=== PATIENT | male | born 1965 | race Caucasian/White ===

== ENCOUNTER 2019-08-28 11:52 | Inpatient (IN) | payer BC ==
[~2019-08-28] VITALS: Ht 180.3 cm; Wt 72.2 kg
[2019-08-28] MEDS ORDERED: ATOR10TA60 PO (12:23)
[2019-08-28] MEDS ORDERED: LISI1TAB19 PO (12:24)
[2019-08-28] MEDS ORDERED: AMOX1TAB61 PO (12:24)
[2019-08-28] MEDS ORDERED: fentaNYL PF VIAL 100 MCG/2 ML VIAL IVP ONE (12:30)
[2019-08-28] MEDS ORDERED: IV NORMAL SALINE 1000ML BAG 1,000 ML IV ONE ×2 (12:30→16:45)
--- NOTE | 2019-08-28 12:40 | PHYS DOC ---
Past Medical History Past Medical History: Diverticulitis, Diverticulosis, High Cholesterol, H ypertension, Migraines (LIZETT KIM APRN) Past Surgical History: Other Additional Past Surgical Histo: L SHOULDER, L HAND (LIZETT KIM APRN) Smoking Status: Current Every Day Smoker Alcohol Use: Occasionally (LIZETT KIM APRN) General Adult EDM: Chief Complaint: ABDOMINAL PAIN HPI: HPI: Patient is a 53 year old male who presents with complaints of left upper and lower quadrant pain that started on 19 August evening slow onset, has increasingly become worse to the 8/10 pain scale. Patient states he has a long history of diverticulitis and usually self treats at home. Patient states he called his primary physician Dr. Chung who called in a prescription for Augmentin 875/125 that he started this past Thursday taking the medication as directed twice a day. Patient states that usually the antibiotic helps his pain go away but is not the case today. Patient states he thinks he is constipated and has not had a normal bowel movement since 19 August. Patient states he had a small watery stool yesterday morning that was brown in color without blood or dark maroon color. Patient states he usually has a BM every day. Patient states that he smokes 1 pack of cigarettes a day for the past 20 years. Patient denies nausea vomiting. Patient denies fever or chills, any recent vision changes, nasal congestion or sore throat. Patient denies any cough or shortness of breath. Patient denies any chest pain or peripheral swelling or edema. Patient denies any problems urinating. Patient denies any back or pain in his joints. Patient denies any rashes. Patient denies any headache or focal weaknesses or sensory changes. Patient denies any swelling of his glands. Patient denies any recent depressions or anxieties or homicidal or suicidal ideations. Patient states no one else in his home has the same symptoms. Patient associates his current symptoms with diverticulitis. (LIZETT KIM APRN) Review of Systems: Review of Systems: Constitutional: Denies fever or chills. Eyes: Denies change in visual acuity. HENT: Denies nasal congestion or sore throat. Respiratory: Denies cough or shortness of breath. Cardiovascular: Denies chest pain or edema. GI: Complains of left upper and lower quadrant pain, denies right upper and lower quadrant pain, nausea, vomiting, complains of small diarrhea stool this morning, complains of constipation since August 192019.. : Denies dysuria. Musculoskeletal: Denies back pain or joint pain. Integument: Denies rash. Neurologic: Denies headache, focal weakness or sensory changes. Lymphatic: Denies swollen glands. Psychiatric: Denies depression or anxiety, denies HI/SI. (LIZETT KIM APRN) Heart Score: Risk Factors: Risk Factors: DM, Current or recent (<one month) smoker, HTN, HLP, family history of CAD, obesity. Risk Scores: Score 0 - 3: 2.5% MACE over next 6 weeks - Discharge Home Score 4 - 6: 20.3% MACE over next 6 weeks - Admit for Clinical Observation Score 7 - 10: 72.7% MACE over next 6 weeks - Early Invasive Strategies (LIZETT KIM APRN) Family History: Family History: Patient denies any family history related to this visit. (LIZETT KIM APRN) Current Medications: Patient states he currently takes atorvastatin 10 mg for high cholesterol, lisinopril 20 mg daily for blood pressure, 12.5 mg hydrochlorothiazide daily for high blood pressure, and a current regimen of Augmentin 875/125 starting this past Thursday for diverticulitis. (LIZETT KIM APRN) Allergies: Allergies: Patient denies allergies to medications. Allergies Coded Allergies Type Severity Reaction Last Updated Verified No Known Drug Allergies 08/28/19 No (LIZETT KIM APRN) Physical Exam: PE: Constitutional: Well developed, well nourished, no acute distress, non-toxic appearance. Patient warm to touch, current oral temp 102.5. Nondiaphoretic. HENT: Normocephalic, atraumatic, bilateral external ears normal, oropharynx moist, no oral exudates, nose normal. Eyes: PERRLA, EOMI, conjunctiva normal, no discharge. Pupils 5 mm. Neck: Normal range of motion, no tenderness, supple, no stridor. Cardiovascular:Heart rate regular rhythm, no murmur heart sounds S1-S2, no abnormalities noted per auscultation. Lungs & Thorax: Bilateral breath sounds clear to auscultation all lung romo. Abdomen: Bowel sounds hypoactive all 4 quadrants. Soft, tender to left upper and lower quadrant per palpation, no tenderness to right upper and lower quadrant. no tenderness, no masses, no pulsatile masses. Skin: Warm, dry, no erythema, no rash. Back: No tenderness, no CVA tenderness. Extremities: No tenderness, no cyanosis, no clubbing, ROM intact, no edema. Neurologic: Alert and oriented X 3, normal motor function, normal sensory function, no focal deficits noted. Psychologic: Affect normal, judgement normal, mood normal. (LIZETT KIM APRN) Current Patient Data: Vital Signs: Vital Signs Date Time Temp Pulse Resp B/P (MAP) Pulse Ox O2 Delivery O2 Flow Rate FiO2 08/28/19 12:10 102.6 129 18 156/75 (102) 95 Room Air 102.6 (LIZETT KIM APRN) EKG: EKG: EKG performed at 1229 today shows sinus tachycardia without ectopy no STEMI noted reviewed by Dr. Ray. (LIZETT KIM APRN) Radiology/Procedures: Radiology/Procedures: PROCEDURE: CT ABD PELV W/ IV CONTRST ONLY EXAM: CT Abdomen and Pelvis with IV contrast INDICATION: Reason: LEFT UPPER AND LOWER QUAD ABD PAIN / Spl. Instructions: IV OMNI 300 75 MLS / History: TECHNIQUE: Multi-detector row CT images were acquired from the lung bases through the abdomen and pelvis with the use of IV contrast. Sagittal and coronal images were acquired from the transaxial data. All CT scans performed at this facility utilize dose optimization techniques as appropriate to the exam, including the following: Automated exposure control and adjustment of the mA and/or KV according to patient size (this includes techniques or standardized protocols for targeted exams where dose is indication/reason for exam). IV CONTRAST: Administered ORAL CONTRAST: Not administered COMPARISON: None FINDINGS: LOWER CHEST: Unremarkable LIVER: Unremarkable BILIARY SYSTEM: Gallbladder is unremarkable. Bile ducts are not dilated. PANCREAS: There is mild misting in the peripancreatic soft tissues near the tail SPLEEN: Unremarkable ADRENALS: Bilateral diffuse fullness to the adrenal glands, suggesting hyperplasia. KIDNEYS & URETERS: Mild diffuse urinary bladder wall thickening. BLADDER: Unremarkable REPRODUCTIVE ORGANS: Prostate measures 4.9 cm across. GASTROINTESTINAL: There is colonic diverticulosis. There is mild pericolonic soft tissue stranding surrounding a diverticulum in the sigmoid colon, best illustrated on coronal images 34 through 36 on series 4. No findings of bowel obstruction or perforation. The appendix is normal. MESENTERY/PERITONEUM/RETROPERITONEUM: Unremarkable VASCULAR: Scattered arterial calcifications. No aneurysm. LYMPH NODES: No adenopathy OSSEOUS & SOFT TISSUES: Unremarkable IMPRESSION: 1. There is evidence of acute sigmoid diverticulitis. No bowel perforation or abscess formation. 2. There is wall thickening in the urinary bladder that is nonspecific but could reflect acute cystitis in the appropriate clinical context. 3. Soft tissue stranding tracking of the mesenteric vessels into the left upper quadrant is seen, possibly reflecting phlebitis related to acute sigmoid colonic inflammation. Correlate clinically for any evidence of pancreatitis. Electronically signed by: Eran Ramon MD (08/28/2019 1:57 PM) (LIZETT KIM APRN) Course & Med Decision Making: Course & Med Decision Making Pertinent Labs and Imaging studies reviewed. (See chart for details) 53-year-old male patient presents emergency department today complaining of left upper and lower quadrant pain since 19 August, described as a slow onset that has increased to 8 out of 10 pain scale as of today. Patient states he called his primary physician Dr. Chung who started him on Augmentin this past Thursday which she has been taken twice a day since Thursday. Patient states he has a long history of diverticulitis and is usually able to take care of it at home with antibiotics called in by his physician. Patient states that he fears his diverticulitis has become worse and antibiotics are not taken care of at this time. Patient states he is concerned about constipation as he has not had a normal BM since the beginning of the presentation on August 19, stating his last BM was yesterday a small watery stool that was brown without blood. Patient states he usually goes every day with normal stool consistency. Patient states he smokes 1 pack of cigarettes per day for the past 20 years. Patient was counseled to stop smoking. Patient states he is a daily drinker. Patient states he does not do illicit drugs. Patient states his health history is hypertension occasional migraines and chronic diverticulitis. Vital signs reviewed patient noted to have a fever oral temp 102.5. Tylenol was given p.o. Labs were drawn and imaging was read by [facility] radiologist, these were reviewed with patient's primary physician Dr. Chung who agreed to assume care and admit patient to the [facility] unit for acute diverticulitis. Spoke with patient about admission who was agreeable to this. (LIZETT KIM APRN) Dragon Disclaimer: Dragon Disclaimer: This electronic medical record was generated, in whole or in part, using a voice recognition dictation system. (LIZETT KIM APRN) Departure Departure Impression: Primary Impression: Acute diverticulitis Additional Impression: Fever Qualified Codes: R50.81 - Fever presenting with conditions classified elsewhere Disposition: ADMITTED INPATIENT Admitting Physician: Brian Chung (LIZETT KIM APRN) Condition: GUARDED Referrals: BRIAN CHUNG MD (PCP) Justicifation of Admission Dx: Justifications for Admission: Justification of Admission Dx: Yes Comments: ACUTE DIVERTICULITIS (LIZETT KMI APRN) Attending Signature Attending Signature I have reviewed the PA/BILLING COORDINATOR's note and plan of care. I was available for consultation as needed during the patient's visit in the emergency department. I agree with the clinical impression, plan, and disposition. (LIZETT RAY DO) LIZETT KIM APRN Aug 28, 2019 12:40 LIZETT RAY DO Aug 29, 2019 06:36
[2019-08-28 12:53] LABS: BASO % 0 % (0-3); EOS % 0 % (0-3); HEMATOCRIT 46.6 % (39.0-53.0); HEMOGLOBIN 16.7 g/dL (13.0-17.5); LYMPH # 0.8 x10^3/uL (1.0-4.8); LYMPH % 6 % (24-48); MEAN CORPUSCULAR HEMOGLOBIN 33 pg (25-35); MEAN CORPUSCULAR HGB CONC 36 g/dL (31-37); MEAN CORPUSCULAR VOLUME 92 fL (79-100); MONO # 0.7 x10^3/uL (0.0-1.1); MONO % 6 % (0-9); NEUT # 11.6 x10^3/uL (1.8-7.7); NEUT % 88 % (31-73); PLATELET COUNT 302 x10^3/uL (140-400); RED BLOOD COUNT 5.07 x10^6/uL (4.30-5.70); WHITE BLOOD COUNT 13.3 x10^3/uL (4.0-11.0)
[2019-08-28 13:04] LABS: CALCIUM 8.6 mg/dL (8.5-10.1); CREATININE 1.2 mg/dL (0.7-1.3); GFR 63.6; POTASSIUM 4.2 mmol/L (3.5-5.1)
[2019-08-28 13:08] LABS: ALBUMIN 3.4 g/dL (3.4-5.0); ALBUMIN/GLOBULIN RATIO 0.8 (1.0-1.7); TOTAL BILIRUBIN 0.9 mg/dL (0.2-1.0); TOTAL PROTEIN 7.6 g/dL (6.4-8.2)
[2019-08-28 13:09] LABS: PROTHROMBIN TIME PATIENT 13.1 SEC (11.7-14.0)
[2019-08-28 13:09] LABS: BILIRUBIN,URINE NEGATIVE (NEG); CLARITY,URINE CLEAR; COLOR,URINE AMBER; NITRITE,URINE NEGATIVE (NEG); PROTEIN,URINE NEGATIVE (NEG-TRACE); UROBILINOGEN,URINE 0.2 mg/dL (0.2 mg/dL)
[2019-08-28] MEDS ORDERED: IOHEXOL 300 MG/ML 100ML VIAL. IV ONE (13:15)
[2019-08-28 13:22] LABS: SQUAMOUS EPITHELIAL CELL,UR FEW /LPF
[2019-08-28 13:23] LABS: BACTERIA,URINE 0 /HPF (0-FEW); RBC,URINE OCC /HPF (0-2); WBC,URINE OCC /HPF (0-4)
[2019-08-28] MEDS ORDERED: CONTRAST GIVEN. MC PRN (13:30)
--- NOTE | 2019-08-28 13:59 | RAD ---
EXAM: CT Abdomen and Pelvis with IV contrast INDICATION: Reason: LEFT UPPER AND LOWER QUAD ABD PAIN / Spl. Instructions: IV OMNI 300 75 MLS / History: TECHNIQUE: Multi-detector row CT images were acquired from the lung bases through the abdomen and pelvis with the use of IV contrast. Sagittal and coronal images were acquired from the transaxial data. All CT scans performed at this facility utilize dose optimization techniques as appropriate to the exam, including the following: Automated exposure control and adjustment of the mA and/or KV according to patient size (this includes techniques or standardized protocols for targeted exams where dose is indication/reason for exam). IV CONTRAST: Administered ORAL CONTRAST: Not administered COMPARISON: None FINDINGS: LOWER CHEST: Unremarkable LIVER: Unremarkable BILIARY SYSTEM: Gallbladder is unremarkable. Bile ducts are not dilated. PANCREAS: There is mild misting in the peripancreatic soft tissues near the tail SPLEEN: Unremarkable ADRENALS: Bilateral diffuse fullness to the adrenal glands, suggesting hyperplasia. KIDNEYS & URETERS: Mild diffuse urinary bladder wall thickening. BLADDER: Unremarkable REPRODUCTIVE ORGANS: Prostate measures 4.9 cm across. GASTROINTESTINAL: There is colonic diverticulosis. There is mild pericolonic soft tissue stranding surrounding a diverticulum in the sigmoid colon, best illustrated on coronal images 34 through 36 on series 4. No findings of bowel obstruction or perforation. The appendix is normal. MESENTERY/PERITONEUM/RETROPERITONEUM: Unremarkable VASCULAR: Scattered arterial calcifications. No aneurysm. LYMPH NODES: No adenopathy OSSEOUS & SOFT TISSUES: Unremarkable IMPRESSION: 1. There is evidence of acute sigmoid diverticulitis. No bowel perforation or abscess formation. 2. There is wall thickening in the urinary bladder that is nonspecific but could reflect acute cystitis in the appropriate clinical context. 3. Soft tissue stranding tracking of the mesenteric vessels into the left upper quadrant is seen, possibly reflecting phlebitis related to acute sigmoid colonic inflammation. Correlate clinically for any evidence of pancreatitis. Electronically signed by: Eran Ramon MD (08/28/2019 1:57 PM) [id number]
[2019-08-28] MEDS ORDERED: ACETAMINOPHEN 500 MG TABLET PO ONE (14:30)
[2019-08-28 14:46] LABS: % LYMPHS 5 % (24-48); % MONOS 4 % (0-10); % SEGS 91 % (35-66)
[2019-08-28 14:47] LABS: PLT ESTIMATE ADEQUATE (ADEQUATE); TOXIC GRANULATION MOD
[2019-08-28] MEDS ORDERED: ONDANSETRON PF 4 MG/2 ML VIAL. IV PRN (16:45)
[2019-08-28] MEDS ORDERED: ACETAMINOPHEN 325 MG TABLET. PO PRN (16:45)
[2019-08-28] MEDS ORDERED: CIPROFLOXACIN 400MG PREMIX 200 ML IV ONE (17:00)
[2019-08-28 17:50] VITALS: BP 129/67
[2019-08-28] MEDS: HYDROcodone/APAP 7.5/325MG 1 TAB TABLET PO PRN (18:25)
[2019-08-28 19:00] VITALS: BP 114/63
--- NOTE | 2019-08-28 19:21 | NUR ---
Fentanyl reassessment not done by this RN.
[2019-08-28] MEDS: CIPROFLOXACIN 400MG PREMIX 200 ML IV SCH (21:26)
[2019-08-28] MEDS: KETOROLAC 30 MG/ML VIAL. IVP PRN (21:27)
[2019-08-28] MEDS ORDERED: NICOTINE 21MG PATCH. TD ONE (21:45)
[2019-08-28 23:00] VITALS: BP 92/52
[2019-08-29 03:00] VITALS: BP 96/51
[2019-08-29 07:00] VITALS: BP 114/74
[2019-08-29] MEDS ORDERED: MELO15TA23 PO (07:22)
[2019-08-29] MEDS ORDERED: ATOR10TA60 PO (07:22)
[2019-08-29] MEDS ORDERED: TOPI50TA38 PO (07:22)
[2019-08-29] MEDS: CIPROFLOXACIN 400MG PREMIX 200 ML IV SCH ×2 (08:34→20:19)
[2019-08-29] MEDS: NICOTINE 21MG PATCH. TD SCH (08:35)
[2019-08-29] MEDS ORDERED: LORazepam 1 MG TABLET PO PRN (08:45)
--- NOTE | 2019-08-29 08:51 | PDOC ---
Provider Note Provider Note [id number] Justicifation of Admission Dx: Justifications for Admission: Justification of Admission Dx: Yes RANJIT CHUNG MD Aug 29, 2019 08:51
--- NOTE | 2019-08-29 09:14 | HP ---
ADMIT DATE: 08/28/2019 CHIEF COMPLAINT: Abdominal pain and fever. HISTORY OF PRESENT ILLNESS: A 53-year-old white male who was started on Augmentin 4 days ago for presumed diverticulitis with left lower quadrant pain, failed to improve and had increasing pain and fever. CT scan confirmed diverticulitis without evidence of perforation and he was started on IV Cipro and Flagyl. PAST HISTORY: He takes meds for blood pressure at home. He has never been hospitalized for diverticulitis so far. ALLERGIES: No allergies are known. 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 FAMILY HISTORY: Unremarkable. REVIEW OF SYSTEMS: No other complaints. OBJECTIVE: ENT: All within normal limits. NECK: No masses, nodes or bruits. LUNGS: Clear. CARDIOVASCULAR: Tachycardia with fever. Otherwise, no murmur. ABDOMEN: Relatively soft, benign. Mildly tender in the left upper quadrant. No guarding or masses. EXTREMITIES: Unremarkable. Good pedal pulses. NEUROLOGIC: Physiologic. ASSESSMENT: Acute sigmoid diverticulitis with failure of outpatient oral therapy. PLAN: Continue current meds pending clinical result. RANJIT CHUNG MD DR: JACKSON/felipe JOB#: [id number] / [id number]
[2019-08-29] MEDS: MULTIVITAMIN with MINERAL TABLET. PO SCH (09:36)
[2019-08-29] MEDS: HYDROcodone/APAP 7.5/325MG 1 TAB TABLET PO PRN ×2 (09:37→20:18)
--- NOTE | 2019-08-29 10:48 | NUR ---
SW following. Discussed with RN, pt from home with , room air. RN advised no SW needs at this time. SW will continue to follow should any discharge needs arise.
[2019-08-29 11:00] VITALS: BP 102/61
--- NOTE | 2019-08-29 14:23 | NUR ---
Patient had critical results of +Blood culture of gram - rods 1 of [address] Melgar continue POC and if patient temperature gets >100.4 we are to do another blood culture.
[2019-08-29 15:00] VITALS: BP 109/65
[2019-08-29 19:00] VITALS: BP 120/71
[2019-08-29] MEDS: LACTOBACILLUS RHAMNOSUS GG 1 CAPSULE. PO SCH (20:18)
[2019-08-29] MEDS: KETOROLAC 30 MG/ML VIAL. IVP PRN (21:40)
[2019-08-29 23:00] VITALS: BP 108/69
[2019-08-30 03:00] VITALS: BP 105/62
[2019-08-30 07:00] VITALS: BP 102/63
--- NOTE | 2019-08-30 07:55 | EKG ---
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
--- NOTE | 2019-08-30 08:08 | PDOC ---
Provider Note Provider Note vss, was 102 last pm- feels some less pain, less tender - apetite back , will resume diet- has + blood cult gram neg rods- will continue flagyl/cipro for now- TAs up but he denies heavy etoh, will do hep c ab but no reason to suspect same Justicifation of Admission Dx: Justifications for Admission: Justification of Admission Dx: Yes RANJIT CHUNG MD Aug 30, 2019 08:08
[2019-08-30] MEDS: NICOTINE 21MG PATCH. TD SCH (09:00)
[2019-08-30] MEDS: MULTIVITAMIN with MINERAL TABLET. PO SCH (09:25)
[2019-08-30] MEDS: LACTOBACILLUS RHAMNOSUS GG 1 CAPSULE. PO SCH ×2 (09:25→20:52)
[2019-08-30] MEDS: CIPROFLOXACIN 400MG PREMIX 200 ML IV SCH ×2 (09:27→20:52)
--- NOTE | 2019-08-30 09:56 | NUR ---
SW following. Discussed with RN, pt had fevers overnight, blood cultures pending. IV flagy and cipro. Pt advanced to regular diet. RN advised pt not ready to discharge. SW will continue to follow.
[2019-08-30 11:00] VITALS: BP 111/65
[2019-08-30 11:02] LABS: CALCIUM 8.2 mg/dL (8.5-10.1); CREATININE 0.9 mg/dL (0.7-1.3); GFR 88.6; POTASSIUM 3.6 mmol/L (3.5-5.1)
[2019-08-30 14:54] VITALS: BP 120/74
[2019-08-30] MEDS: HYDROcodone/APAP 7.5/325MG 1 TAB TABLET PO PRN (18:51)
[2019-08-30 19:42] VITALS: BP 144/80
[2019-08-30 23:50] VITALS: BP 118/65
[2019-08-31] MEDS: HYDROcodone/APAP 7.5/325MG 1 TAB TABLET PO PRN (00:30)
[2019-08-31] MEDS: KETOROLAC 30 MG/ML VIAL. IVP PRN (00:30)
[2019-08-31 03:51] VITALS: BP 106/65
[2019-08-31 07:26] VITALS: BP 112/62
--- NOTE | 2019-08-31 08:12 | PDOC ---
Provider Note Provider Note pain better but spiked to 103- 1st bc pending, e coli seen- exam good- repeat cultures pending, hep c neg re transamitis- will dc flagyl/cipro for zosyn, ID consult, follow TAs, suspect some etoh a factor Justicifation of Admission Dx: Justifications for Admission: Justification of Admission Dx: Yes RANJIT CHUNG MD Aug 31, 2019 08:11
[2019-08-31] MEDS: MULTIVITAMIN with MINERAL TABLET. PO SCH (09:33)
[2019-08-31] MEDS: LACTOBACILLUS RHAMNOSUS GG 1 CAPSULE. PO SCH ×2 (09:33→20:53)
[2019-08-31] MEDS: NICOTINE 21MG PATCH. TD SCH (09:33)
[2019-08-31] MEDS: PIPERACILLIN/TAZOBACTAM 3.375 GM in IV NORMAL SALINE 50ML 50 ML IV SCH ×4 (09:35→23:56)
--- NOTE | 2019-08-31 09:47 | PDOC ---
Infectious Disease Note Vital Sign Vital Signs Vital Signs Date Time Temp Pulse Resp B/P (MAP) Pulse Ox O2 Delivery O2 Flow Rate FiO2 08/31/19 07:48 Room Air 08/31/19 07:26 98.2 79 19 112/62 (79) 97 98.2 Labs Lab Laboratory Tests Test 08/30/19 10:20 Sodium Level 133 mmol/L (136-145) Potassium Level 3.6 mmol/L (3.5-5.1) Chloride Level 100 mmol/L (98-107) Carbon Dioxide Level 24 mmol/L (21-32) Anion Gap 9 (6-14) Blood Urea Nitrogen 9 mg/dL (8-26) Creatinine 0.9 mg/dL (0.7-1.3) Estimated GFR (Cockcroft-Gault) 88.6 Glucose Level 138 mg/dL (70-99) Calcium Level 8.2 mg/dL (8.5-10.1) Hepatitis C IgG Antibody Nonreactive (Nonreactive) Micro Microbiology 08/28/19 Blood Culture - Preliminary, Resulted NO GROWTH AFTER 2 DAYS Objective Assessment pt seen, consult dictated Plan Plan of Care / RAIMUNDO BEARDEN MD Aug 31, 2019 09:47
--- NOTE | 2019-08-31 10:16 | CONS ---
DATE OF CONSULTATION: 08/31/2019 REQUESTING PHYSICIAN: Brian Melgar MD REASON FOR CONSULTATION: Fever, diverticulitis and Escherichia coli bacteremia. HISTORY OF PRESENT ILLNESS: This is a 53-year-old gentleman who has been a smoker, who has had diabetes, hyperlipidemia, who started running fever and some abdominal pain since 08/19. The patient had a prescription from Dr. Melgar of Augmentin. He did not get better, hence he was admitted. The patient was found to have diverticulitis, was put on Cipro and Flagyl and continued to have fever up to 103 yesterday, hence now changed to Zosyn and consult has been requested. The patient also has E. coli in the blood. The patient is feeling better. There is not much of any abdominal pain now. The patient has no nausea, vomiting, diarrhea, headache or visual symptoms. He has had few of those earlier, but that has improved. The patient is up and about. The patient denies any chest pain, cough or shortness of breath. PAST MEDICAL HISTORY: Positive for hypertension, hyperlipidemia, migraine headaches, diverticulosis with history of diverticulitis, shoulder and hand surgeries. SOCIAL HISTORY: Positive for smoking. Occasional alcohol use. No drug use. The patient and the denies any other contact,, anything, going anywhere with the people and denies any exposure for COVID. ALLERGIES: No known drug allergies. ROS : as per HPI, rest neg CURRENT MEDICATIONS: The patient is just switched over to Zosyn. PHYSICAL EXAMINATION: GENERAL: Alert and oriented gentleman, not in distress. VITAL SIGNS: Stable with a T-max of 103. HEENT: NAD. NECK: Supple. No JVP. No lymphadenopathy. LUNGS: Clear. HEART: S1, S2 regular. ABDOMEN: Soft, nontender. No organomegaly. No rebound or guarding. EXTREMITIES: No edema or cyanosis. SKIN: Unremarkable. NEUROLOGIC: The patient is alert, awake and appropriate. No focal neurologic deficit. LABORATORY DATA: White count is 13.3. BUN and creatinine is normal. Urinalysis is unremarkable. The patient had a hep C done, which was negative. Blood culture is positive with Escherichia coli, which is resistant to ampicillin/sulbactam and sensitive to everything else. CT of the abdomen and pelvis showed acute sigmoid diverticulitis, thickening of the urinary bladder, nonspecific and soft tissue stranding, tracking of the mesenteric vessels into the left upper quadrant, possibly reflecting phlebitis related to acute colonic inflammation. IMPRESSION: 1. Acute sigmoid diverticulitis. 2. Fever. Fever is concerning since 08/19. Clearly, he has E. coli in the blood that can explain the fever, but he should have responded to Cipro, which even yesterday he had a 103 fever that is concerning. 3. Leukocytosis. 4. Hypertension. 5. Hyperlipidemia. RECOMMENDATIONS: Continue Zosyn. We will give another day on Zosyn. If he continues to run fever, might consider doing a COVID testing. Clearly patient and the says that they have been in the house, they have not been out to do anything or with any people, there is no "exposure to anybody." Thank you very much, Dr. Melgar, for giving me the opportunity to participate in this patient's care. RAIMUNDO BEARDEN MD DR: ROSITA/felipe JOB#: [id number] / [id number] [place]
--- NOTE | 2019-08-31 11:00 | NUR ---
SW following. Discussed with RN and Dr. Hernandez, continue IV zosyn, likely won't need IV abx at discharge. Dr. Hernandez stated in chart "consider doing a COVID-19 test if fever continues." SW will continue to follow.
[2019-08-31 11:11] VITALS: BP 130/72
--- NOTE | 2019-08-31 12:00 | RAD ---
CHEST PA LATERAL History: Reason: fever smoker / Spl. Instructions: / History: Comparison: None. Findings: Frontal and lateral views of the chest were obtained. The cardiomediastinal silhouette is normal. Pulmonary vasculature is normal. The lungs are clear. Calcified granuloma involves the lateral right upper lung field. No pleural effusion or pneumothorax is seen. There is no acute bone abnormality. IMPRESSION: No acute cardiopulmonary process. Electronically signed by: Atul Yan MD (08/31/2019 11:57 AM) [id number]
[2019-08-31 13:18] LABS: ALBUMIN 3.1 g/dL (3.4-5.0); DIRECT BILIRUBIN 0.2 mg/dL (0.0-0.2); TOTAL BILIRUBIN 0.8 mg/dL (0.2-1.0); TOTAL PROTEIN 6.9 g/dL (6.4-8.2)
[2019-08-31 13:20] LABS: BASO % 1 % (0-3); EOS % 0 % (0-3); HEMATOCRIT 44.3 % (39.0-53.0); HEMOGLOBIN 15.7 g/dL (13.0-17.5); LYMPH # 1.3 x10^3/uL (1.0-4.8); LYMPH % 17 % (24-48); MEAN CORPUSCULAR HEMOGLOBIN 33 pg (25-35); MEAN CORPUSCULAR HGB CONC 35 g/dL (31-37); MEAN CORPUSCULAR VOLUME 93 fL (79-100); MONO # 0.6 x10^3/uL (0.0-1.1); MONO % 8 % (0-9); NEUT # 5.8 x10^3/uL (1.8-7.7); NEUT % 74 % (31-73); PLATELET COUNT 288 x10^3/uL (140-400); RED BLOOD COUNT 4.79 x10^6/uL (4.30-5.70); RED CELL DISTRIBUTION WIDTH 13.1 % (11.5-14.5); WHITE BLOOD COUNT 7.7 x10^3/uL (4.0-11.0)
[2019-08-31 15:08] VITALS: BP 123/73
[2019-08-31 19:00] VITALS: BP 133/84
[2019-08-31 23:00] VITALS: BP 145/85
[2019-09-01 03:00] VITALS: BP 129/79
[2019-09-01] MEDS: PIPERACILLIN/TAZOBACTAM 3.375 GM in IV NORMAL SALINE 50ML 50 ML IV SCH ×4 (05:35→23:41)
[2019-09-01 07:00] VITALS: BP 128/75
[2019-09-01] MEDS: MULTIVITAMIN with MINERAL TABLET. PO SCH (08:18)
[2019-09-01] MEDS: LACTOBACILLUS RHAMNOSUS GG 1 CAPSULE. PO SCH ×2 (08:18→21:04)
[2019-09-01] MEDS: NICOTINE 21MG PATCH. TD SCH (08:18)
--- NOTE | 2019-09-01 08:24 | PDOC ---
Provider Note Provider Note no temp 36 hrs- vss, feels better overall- bc showed e coli sens to cipro and zosyn- will continue zosyn another day and follow temp- add effexor for migraine trial as topamax has stopped working- wbc and TAs are all better Justicifation of Admission Dx: Justifications for Admission: Justification of Admission Dx: Yes RANJIT CHUNG MD Sep 01, 2019 08:24
--- NOTE | 2019-09-01 08:55 | NUR ---
SW following. Discussed with RN. Continue IV Zosyn for one more day per Dr. Melgar's note. RN advised no SW needs at this time, anticipate discharge tomorrow (09/02/2019). SW will continue to follow should any discharge needs arise.
[2019-09-01] MEDS: ATORVASTATIN CALCIUM 10 MG TABLET. PO SCH (09:22)
--- NOTE | 2019-09-01 09:27 | PDOC ---
Infectious Disease Note Subjective Subjective Patient is feeling really good. No more fever. No abdominal pain ROS ROS Denies any nausea vomiting diarrhea Vital Sign Vital Signs Vital Signs Date Time Temp Pulse Resp B/P (MAP) Pulse Ox O2 Delivery O2 Flow Rate FiO2 09/01/19 07:00 97.5 76 18 128/75 (92) 100 Room Air 97.5 Physical Exam PHYSICAL EXAM GENERAL: Alert and oriented gentleman, not in distress. VITAL SIGNS: Stable HEENT: NAD. NECK: Supple. No JVP. No lymphadenopathy. LUNGS: Clear. HEART: S1, S2 regular. ABDOMEN: Soft, nontender. No organomegaly. No rebound or guarding. EXTREMITIES: No edema or cyanosis. SKIN: Unremarkable. NEUROLOGIC: The patient is alert, awake and appropriate. No focal neurologic deficit. Labs Lab Laboratory Tests Test 08/31/19 12:35 White Blood Count 7.7 x10^3/uL (4.0-11.0) Red Blood Count 4.79 x10^6/uL (4.30-5.70) Hemoglobin 15.7 g/dL (13.0-17.5) Hematocrit 44.3 % (39.0-53.0) Mean Corpuscular Volume 93 fL (79-100) Mean Corpuscular Hemoglobin 33 pg (25-35) Mean Corpuscular Hemoglobin Concent 35 g/dL (31-37) Red Cell Distribution Width 13.1 % (11.5-14.5) Platelet Count 288 x10^3/uL (140-400) Neutrophils (%) (Auto) 74 % (31-73) Lymphocytes (%) (Auto) 17 % (24-48) Monocytes (%) (Auto) 8 % (0-9) Eosinophils (%) (Auto) 0 % (0-3) Basophils (%) (Auto) 1 % (0-3) Neutrophils # (Auto) 5.8 x10^3/uL (1.8-7.7) Lymphocytes # (Auto) 1.3 x10^3/uL (1.0-4.8) Monocytes # (Auto) 0.6 x10^3/uL (0.0-1.1) Eosinophils # (Auto) 0.0 x10^3/uL (0.0-0.7) Basophils # (Auto) 0.0 x10^3/uL (0.0-0.2) Total Bilirubin 0.8 mg/dL (0.2-1.0) Direct Bilirubin 0.2 mg/dL (0.0-0.2) Aspartate Amino Transf (AST/SGOT) 35 U/L (15-37) Alanine Aminotransferase (ALT/SGPT) 63 U/L (16-63) Alkaline Phosphatase 120 U/L (46-116) Total Protein 6.9 g/dL (6.4-8.2) Albumin 3.1 g/dL (3.4-5.0) Micro E. coli in the blood Objective Assessment IMPRESSION: 1. Acute sigmoid diverticulitis. 2. Fever. Fever is concerning since 08/19. Clearly, he has E. coli in the blood that can explain the fever, but he should have responded to Cipro, which even yesterday he had a 103 fever that is concerning. 3. Leukocytosis. 4. Hypertension. 5. Hyperlipidemia. Plan Plan of Care Continue Zosyn soon to be able to switch over to p.o. Cipro for discharge RAIMUNDO BEARDEN MD Sep 01, 2019 09:27
[2019-09-01 11:03] VITALS: BP 125/73
[2019-09-01 15:19] VITALS: BP 133/80
[2019-09-01] MEDS: VENLAFAXINE XR 37.5 MG CAP.ER.24H. PO SCH (17:22)
[2019-09-01 19:40] VITALS: BP 117/64
[2019-09-01 22:44] VITALS: BP 131/74
[2019-09-02 03:00] VITALS: BP 142/83
[2019-09-02] MEDS: PIPERACILLIN/TAZOBACTAM 3.375 GM in IV NORMAL SALINE 50ML 50 ML IV SCH (05:34)
[2019-09-02 07:30] VITALS: BP 135/76
--- NOTE | 2019-09-02 08:42 | PDOC ---
Provider Note Provider Note [id number] Justicifation of Admission Dx: Justifications for Admission: Justification of Admission Dx: Yes RANJIT CHUNG MD Sep 02, 2019 08:42
--- NOTE | 2019-09-02 08:46 | NUR ---
SW following. Discussed with RN. RN advised no SW needs and anticipates pt should discharge home today with self care.
--- NOTE | 2019-09-02 08:53 | PDOC ---
Infectious Disease Note Subjective Subjective Patient is feeling really good. No more fever. No abdominal pain ROS ROS no n/v/d/sob Vital Sign Vital Signs Vital Signs Date Time Temp Pulse Resp B/P (MAP) Pulse Ox O2 Delivery O2 Flow Rate FiO2 09/02/19 07:38 Room Air 09/02/19 07:30 98.3 77 18 135/76 (95) 98 98.3 Physical Exam PHYSICAL EXAM GENERAL: Alert and oriented gentleman, not in distress. VITAL SIGNS: Stable HEENT: NAD. NECK: Supple. No JVP. No lymphadenopathy. LUNGS: Clear. HEART: S1, S2 regular. ABDOMEN: Soft, nontender. No organomegaly. No rebound or guarding. EXTREMITIES: No edema or cyanosis. SKIN: Unremarkable. NEUROLOGIC: The patient is alert, awake and appropriate. No focal neurologic deficit. Labs Micro E. coli in the blood Objective Assessment IMPRESSION: 1. Acute sigmoid diverticulitis. 2. Fever. improved 3. Leukocytosis. 4. Hypertension. 5. Hyperlipidemia. 6. E coli bacteremia Plan Plan of Care Continue Zosyn soon to be able to switch over to p.o. Cipro for discharge d/w RAIMUNDO Preston MD Sep 02, 2019 08:53
[2019-09-02] MEDS: ATORVASTATIN CALCIUM 10 MG TABLET. PO SCH (08:56)
[2019-09-02] MEDS: MULTIVITAMIN with MINERAL TABLET. PO SCH (08:56)
[2019-09-02] MEDS: LACTOBACILLUS RHAMNOSUS GG 1 CAPSULE. PO SCH (08:56)
[2019-09-02] MEDS: NICOTINE 21MG PATCH. TD SCH (08:56)
[2019-09-02] MEDS: VENLAFAXINE XR 37.5 MG CAP.ER.24H. PO SCH (08:56)
--- NOTE | 2019-09-02 09:12 | DS ---
DATE OF DISCHARGE: 09/02/2019 HOSPITAL SUMMARY: A 53-year-old white male, admitted with acute diverticulitis, failing outpatient therapy with Augmentin with increasing pain. CT scan confirmed diverticulitis of the sigmoid colon and 4 blood cultures grew out E. coli, resistant to Augmentin and sensitive to Cipro and other antibiotics. White count was elevated at 13,000 on admission and became normal. Transaminases were mildly elevated on admission and became normal within 2 days as well. COVID test was not done. Hepatitis C test was nonreactive. Urine was clear. Chest x-ray was clear as well. He was initially given IV Flagyl and Cipro and continued to spike fevers and when the blood cultures were determined despite the fact that his E. coli was sensitive to Cipro, he was switched to Zosyn and became afebrile after that. He has been afebrile for 2-1/2 days on Zosyn and is feeling much better and comfortable, will be followed as an outpatient at this point. FINAL DIAGNOSES: 1. Acute sigmoid diverticulitis. 2. Bacteremia secondary to Escherichia coli from sigmoid diverticulitis. 3. Transaminitis, likely secondary to alcohol use. OPERATIONS, PROCEDURES, COMPLICATIONS: None. CONSULTATION: Dr. Bola Hernandez. DISPOSITION: He will switch to Cipro 500 mg twice a day for 1 more week. Home meds remain the same, but he will stop topiramate for migraines, which has not been working. We will start him on Effexor XR 37.5 mg daily with an increase in 1 week when we see him in the office. High fiber diet. Activity as tolerated. Off work until then. PROGNOSIS: Good. RANJIT CHUNG MD DR: JACKSON/felipe JOB#: [id number] / [id number]
--- NOTE | 2019-09-02 10:38 | NUR ---
Pt. discharged to home, verbalized understanding of discharge instructions.
== END 2019-09-02 09:40 | disposition home or self-care (01) | DRG 392 ==
LOC: ER 11:52 → 4 NORTH 16:00
PROVIDERS: ADMIT Family Medicine; ATTEND Family Medicine
DX: K57.32 Diverticulitis of large intestine without perforation or abscess without bleeding (principal); F17.210 Nicotine dependence, cigarettes, uncomplicated; B96.20 Unspecified Escherichia coli [E. coli] as the cause of diseases classified elsewhere; E11.9 Type 2 diabetes mellitus without complications; E78.00 Pure hypercholesterolemia, unspecified; E78.5 Hyperlipidemia, unspecified; I10 Essential (primary) hypertension; G43.909 Migraine, unspecified, not intractable, without status migrainosus; R74.0 Nonspecific elevation of levels of transaminase and lactic acid dehydrogenase [LDH]
CPT/HCPCS: 36415; 71046; 74177; 80048; 80053; 80076; 81001; 82977; 83605; 83690; 85007; 85025; 85610; 85730; 86803; 87040; 87077; 87186; 87205; 93005; 96361; 96365; 96368; 96375; J0744; J1885; J2543; J3010; J3490; J7030; Q9967; 99285-25; G0378

== ENCOUNTER 2019-10-17 20:19 | Inpatient (IN) | payer BC ==
[~2019-10-17] VITALS: Ht 180.3 cm; Wt 71.7 kg
[~2019-10-17 20:19] MED LIST: AMOX1TAB61 PO; ATOR10TA60 PO; LISI1TAB37 PO; MELO15TA23 PO; TOPI50TA38 PO
--- NOTE | 2019-10-17 20:48 | PHYS DOC ---
Past Medical History Past Medical History: Diverticulitis, Diverticulosis, High Cholesterol, H ypertension, Migraines Past Surgical History: Other Additional Past Surgical Histo: L SHOULDER, L HAND Smoking Status: Current Every Day Smoker Alcohol Use: Occasionally General Adult EDM: Chief Complaint: ABDOMINAL PAIN HPI: HPI: 54-year-old male past medical history significant for hyperlipidemia, hypertension, migraine headaches and history of sigmoid diverticulitis with admission August 28 after patient failed outpatient antibiotics (Augmentin), presents the ED with complaints of sharp, nonradiating left lower quadrant abdominal pain that has been constant since "I was discharged a month ago." Reports strainging, painful bms that worsen the llq pain. Does report suprapubic discomfort, increased urinary frequency and right "kidney" pain. ROS: Denies associated headache, neck stiffness, cough, sore throat, nausea, vomiting, hematochezia, melena, hematemesis, hemoptysis, chest pain or pressure, hematuria, dysuria, left flank pain, upper abdominal pain, leg swelling, rash. Review of Systems: Review of Systems: Constitutional: Denies fever or chills. [] Eyes: Denies change in visual acuity. [] HENT: Denies nasal congestion or sore throat. [] Respiratory: Denies cough or shortness of breath. [] Cardiovascular: Denies chest pain or edema. [] [] Musculoskeletal: Denies joint pain. [] Integument: Denies rash. [] Neurologic: Denies headache, focal weakness or sensory changes. [] Lymphatic: Denies swollen glands. [] Psychiatric: Denies depression or anxiety. [] Heart Score: Risk Factors: Risk Factors: DM, Current or recent (<one month) smoker, HTN, HLP, family histo ry of CAD, obesity. Risk Scores: Score 0 - 3: 2.5% MACE over next 6 weeks - Discharge Home Score 4 - 6: 20.3% MACE over next 6 weeks - Admit for Clinical Observation Score 7 - 10: 72.7% MACE over next 6 weeks - Early Invasive Strategies Allergies: Allergies: Allergies Coded Allergies Type Severity Reaction Last Updated Verified No Known Drug Allergies 08/28/19 No Physical Exam: PE: Constitutional: Well developed, well nourished, no acute distress, non-toxic appearance, febrile HENT: Normocephalic, atraumatic, bilateral external ears normal, oropharynx moist, no oral exudates, nose normal. [] Eyes: EOMI, conjunctiva normal, no discharge. [] Neck: Normal range of motion, no tenderness, supple, no stridor. [] Cardiovascular:tachycardia in 110s, no murmur [] Lungs & Thorax: Bilateral breath sounds clear to auscultation [] Abdomen: Bowel sounds normal, LLQ ttp, no masses, no pulsatile masses. [] Skin: Warm, dry, no erythema, no rash. [] Back: No tenderness, no CVA tenderness. [] Extremities: No tenderness, no cyanosis, no clubbing, ROM intact, no edema. [] Neurologic: Alert and oriented X 3, normal motor function, normal sensory function, no focal deficits noted. [] Psychologic: Affect normal, judgement normal, mood normal. [] Current Patient Data: Vital Signs: Vital Signs Date Time Temp Pulse Resp B/P (MAP) Pulse Ox O2 Delivery O2 Flow Rate FiO2 10/17/19 20:27 101.2 111 16 162/78 (106) 94 Room Air 101.2 EKG: EKG: [] Radiology/Procedures: Radiology/Procedures: []IMAGING REPORT Signed PATIENT: KARTHIK AJ ACCOUNT: [id number] : 1965 LOCATION: ER AGE: 54 SEX: M EXAM STATUS: REG ER ORD. PHYSICIAN: GALDINO GAGE DO REASON: abd pain PROCEDURE: CT ABD PELV W/ IV CONTRST ONLY Exam: CT of abdomen and pelvis with contrast INDICATION: Abdominal pain TECHNIQUE: Sequential axial images through the abdomen and pelvis obtained without IV contrast. Sagittal and coronal reformatted images were reconstructed from the axial data and reviewed. Comparisons: 08/28/2019 FINDINGS: Heart size is normal. No pericardial effusion. Visualized lung bases are clear. No pleural effusion. Liver, spleen, pancreas, gallbladder and adrenals are unremarkable. Kidneys demonstrate symmetric enhancement. There is a nonobstructing 2 mm calculus at the lower pole of the left kidney. No ureteral calculi are identified. Bladder is partially distended and not well evaluated. Prostate is not enlarged. There is diffuse wall thickening at the sigmoid colon. There is a adjacent air and fluid collection interposed between the sigmoid colon and the bladder which measures approximately 3.4 x 3.5 cm. The remainder of the large and small bowel are unremarkable. Appendix is normal. No free intra-abdominal air or fluid. No obstruction. Abdominal aorta has a normal course and caliber. No enlarged abdominal lymph nodes are identified. No suspicious osseous lesions or acute fractures. IMPRESSION: 1. Findings likely related to diverticulitis at the sigmoid colon with a contained perforation measuring 3.5 x 3.4 cm interposed between the sigmoid colon and bladder. 2. Nonobstructing 2 mm left renal calculus. Exposure: One or more of the following in the visualized dose reduction techniques were utilized for this examination: 1. Automated exposure control 2. Adjustment of the MA and/or KV according to patient size 3. Use of iterative of reconstructive technique Electronically signed by: Traci Hartley MD (10/17/2019 9:35 PM) [id number] DICTATED and SIGNED BY: TRACI HARTLEY MD DATE: 10/17/192134 IMAGING REPORT Signed PATIENT: KARTHIK AJ ACCOUNT: [id number] : 1965 LOCATION: ER AGE: 54 SEX: M EXAM STATUS: REG ER ORD. PHYSICIAN: GALDINO GAGE DO REASON: COUGH PROCEDURE: CHEST AP ONLY Study: CR CHEST AP ONLY Indication: Cough. Comparison: 08/31/2019 Findings: Unchanged cardiomediastinal silhouette and yoko. No lobar consolidation, pleural effusion or pneumothorax. Mild haziness at the mid left lung is favored summation artifact and a similar appearance was present on the comparison. Surgical changes at the left glenoid. Impression: No acute radiographic abnormality of the chest. Electronically signed by: RAJAT OATES MD (10/17/2019 10:24 PM) [id number] DICTATED and SIGNED BY: RAJAT OATES MD DATE: 10/17/192223 Course & Med Decision Making: Course & Med Decision Making Pertinent Labs and Imaging studies reviewed. (See chart for details) Concern for sepsis and abdominal pain secondary to sigmoid diverticular to colitis with contained perforation, started on Cipro and Flagyl, IV fluids and analgesia. Patient is febrile, tachycardic and has leukocytosis of 15.9, LA 0.7. Initially ordered Cipro and Flagyl for IV antibiotics due to known history of diverticulitis, added ampicillin with ct results. Reviewed CT images with surgery Dr. Marcus. Recommends admission to medicine with ID consultation. Patient accepted by Dr. Cuhng. CXR with no acute process, pt not a PUI. Will admit for further medical and surgical management. Patient stable at time of admission and agrees this plan. I have spoken with the patient and/or caregivers. I have explained the patient's condition, diagnosis and treatment plan based on the information available to me at this time. I have answered the patient's and/or caregivers questions and answered any concerns. The patient and/or caregivers have as good an understanding of the patient's diagnosis, condition and treatment plan as can be expected at this point. The patient has been stabilized within the capability of the emergency department. The patient will be transported for further care and management or will be moved to an observation or inpatient service. I have communicated with the staff or medical practitioner taking over this patient's care. Christian Disclaimer: Christian Disclaimer: This electronic medical record was generated, in whole or in part, using a voice recognition dictation system. Departure Departure Impression: Primary Impression: Sepsis Additional Impressions: Sigmoid diverticulitis Diverticulitis of colon with perforation Abdominal pain Disposition: ADMITTED INPATIENT Admitting Physician: Ranjit Chung Condition: GUARDED Referrals: RANJIT CHUNG MD (PCP) Justicifation of Admission Dx: Justifications for Admission: Justification of Admission Dx: Yes Sepsis: Infection MERARIGALDINO Nazia DO Oct 17, 2019 20:48
[2019-10-17 20:49] LABS: BASO # 0.1 x10^3/uL (0.0-0.2); BASO % 1 % (0-3); EOS # 0.2 x10^3/uL (0.0-0.7); EOS % 1 % (0-3); HEMATOCRIT 42.4 % (39.0-53.0); HEMOGLOBIN 15.1 g/dL (13.0-17.5); LYMPH # 2.5 x10^3/uL (1.0-4.8); LYMPH % 16 % (24-48); MEAN CORPUSCULAR HEMOGLOBIN 32 pg (25-35); MEAN CORPUSCULAR HGB CONC 36 g/dL (31-37); MEAN CORPUSCULAR VOLUME 91 fL (79-100); MONO # 1.5 x10^3/uL (0.0-1.1); MONO % 10 % (0-9); NEUT # 11.5 x10^3/uL (1.8-7.7); NEUT % 73 % (31-73); PLATELET COUNT 557 x10^3/uL (140-400); RED BLOOD COUNT 4.65 x10^6/uL (4.30-5.70); RED CELL DISTRIBUTION WIDTH 12.8 % (11.5-14.5); WHITE BLOOD COUNT 15.9 x10^3/uL (4.0-11.0)
[2019-10-17 20:59] LABS: CREATININE 0.8 mg/dL (0.7-1.3); GFR 101.1; POTASSIUM 3.8 mmol/L (3.5-5.1)
[2019-10-17] MEDS ORDERED: CIPROFLOXACIN 400MG PREMIX 200 ML IV ONE (21:00)
[2019-10-17] MEDS ORDERED: IV NORMAL SALINE 1000ML BAG 1,000 ML IV ONE ×2 (21:00)
[2019-10-17 21:05] LABS: ALBUMIN 3.1 g/dL (3.4-5.0); DIRECT BILIRUBIN 0.1 mg/dL (0.0-0.2); TOTAL BILIRUBIN 0.3 mg/dL (0.2-1.0); TOTAL PROTEIN 7.4 g/dL (6.4-8.2)
[2019-10-17] MEDS ORDERED: CONTRAST GIVEN. MC PRN (21:15)
[2019-10-17] MEDS ORDERED: IOHEXOL 300 MG/ML 100ML VIAL. IV ONE (21:30)
--- NOTE | 2019-10-17 21:38 | RAD ---
Exam: CT of abdomen and pelvis with contrast INDICATION: Abdominal pain TECHNIQUE: Sequential axial images through the abdomen and pelvis obtained without IV contrast. Sagittal and coronal reformatted images were reconstructed from the axial data and reviewed. Comparisons: 08/28/2019 FINDINGS: Heart size is normal. No pericardial effusion. Visualized lung bases are clear. No pleural effusion. Liver, spleen, pancreas, gallbladder and adrenals are unremarkable. Kidneys demonstrate symmetric enhancement. There is a nonobstructing 2 mm calculus at the lower pole of the left kidney. No ureteral calculi are identified. Bladder is partially distended and not well evaluated. Prostate is not enlarged. There is diffuse wall thickening at the sigmoid colon. There is a adjacent air and fluid collection interposed between the sigmoid colon and the bladder which measures approximately 3.4 x 3.5 cm. The remainder of the large and small bowel are unremarkable. Appendix is normal. No free intra-abdominal air or fluid. No obstruction. Abdominal aorta has a normal course and caliber. No enlarged abdominal lymph nodes are identified. No suspicious osseous lesions or acute fractures. IMPRESSION: 1. Findings likely related to diverticulitis at the sigmoid colon with a contained perforation measuring 3.5 x 3.4 cm interposed between the sigmoid colon and bladder. 2. Nonobstructing 2 mm left renal calculus. Exposure: One or more of the following in the visualized dose reduction techniques were utilized for this examination: 1. Automated exposure control 2. Adjustment of the MA and/or KV according to patient size 3. Use of iterative of reconstructive technique Electronically signed by: Traci Mitchell MD (10/17/2019 9:35 PM) [id number]
--- NOTE | 2019-10-17 22:27 | RAD ---
Study: CR CHEST AP ONLY Indication: Cough. Comparison: 08/31/2019 Findings: Unchanged cardiomediastinal silhouette and yoko. No lobar consolidation, pleural effusion or pneumothorax. Mild haziness at the mid left lung is favored summation artifact and a similar appearance was present on the comparison. Surgical changes at the left glenoid. Impression: No acute radiographic abnormality of the chest. Electronically signed by: RAJAT OATES MD (10/17/2019 10:24 PM) [id number]
[2019-10-17] MEDS ORDERED: HYDROmorphone 2 MG/ML VIAL IVP ONE (22:30)
[2019-10-17] MEDS ORDERED: AMPICILLIN SODIUM 2 GM in IV NORMAL SALINE 100ML 100 ML IV ONE (22:30)
[2019-10-17] MEDS ORDERED: PIPERACILLIN/TAZOBACTAM 4.5 GM in IV NORMAL SALINE 100ML 100 ML IV ONE (22:30)
[2019-10-17] MEDS ORDERED: ONDANSETRON PF 4 MG/2 ML VIAL. IV PRN (23:30)
[2019-10-17] MEDS ORDERED: MORPHINE SULFATE 2 MG/ML VIAL. IV PRN (23:30)
--- NOTE | 2019-10-17 23:45 | NUR ---
The patient, KARTHIK AJ, 54 y/o, M admitted by RANJIT CHUNG MD, was given written information regarding hospital policies, unit procedures and contact persons. patient transferred to room via wheelchair, assisted by ED staff member. Valuables were checked and noted. Patient informed in NPO status at this time. Patient is currently laying in bed watching TV, call light is within reach of the patient. Patient denies any needs a this time. This RN will continue to monitor the patient at this time.
[2019-10-17 23:50] VITALS: BP 136/79
[2019-10-18] MEDS: IV NORMAL SALINE 1000ML BAG 1,000 ML IV SCH ×3 (00:07→18:46)
[2019-10-18 03:00] VITALS: BP 139/80
[2019-10-18] MEDS ORDERED: ACETAMINOPHEN 325 MG TABLET. PO PRN (04:00)
[2019-10-18 07:31] VITALS: BP 132/64
[2019-10-18] MEDS ORDERED: KETOROLAC 30 MG/ML VIAL. IVP PRN (08:30)
--- NOTE | 2019-10-18 08:32 | PDOC ---
Provider Note Date of Service: DATE: 10/18/19 TIME: 08:29 Provider Note [id number] Justifications for Admission Other Justification RANJIT CHUNG MD Oct 18, 2019 08:32
--- NOTE | 2019-10-18 09:32 | HP ---
ADMIT DATE: 10/18/2019 CHIEF COMPLAINT: Abdominal pain and fever. HISTORY OF PRESENT ILLNESS: A 54-year-old white male has been dealing with lower abdominal pain for about the last 2 weeks. He was felt to have either prostatitis or recurrent diverticulitis and has been on Cipro the entire time, but on the day of admission he had increasing pain and fever and chills. He denies urinary tract symptoms, bowel symptoms, bloody stools, weight loss or vomiting. He was in the hospital about 6 weeks ago for sigmoid diverticulitis that improved uneventfully and he took about 10 days of Flagyl and Cipro after not responding to oral Augmentin. He has not yet had a colonoscopy is planned because of the recurrence of the diverticulitis. PAST MEDICAL HISTORY: He takes venlafaxine for anxiety and migraine headaches. ALLERGIES: He has no allergies. Tetanus status is uncertain. SOCIAL HISTORY: Light smoker and drinker. 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 He is . FAMILY HISTORY: Unremarkable. REVIEW OF SYSTEMS: No other complaints. OBJECTIVE: ENT: Unremarkable. NECK: No masses, nodes or bruits. LUNGS: Clear, no tachypnea. CARDIOVASCULAR: Regular rate, rate is 100. No murmurs heard. ABDOMEN: Tender in the left lower quadrant and suprapubic area. No guarding or masses are noted. EXTREMITIES: Unremarkable. NEUROLOGIC: Physiologic. ASSESSMENT: Recurrent distal sigmoid diverticulitis with apparent perforation in the perivesicular area. PLAN: Continue IV Zosyn and n.p.o. status. Surgical consultation will be obtained and may need to evaluate through Interventional Radiology as well. RANJIT CHUNG MD DR: JACKSON/felipe JOB#: [id number] / [id number]
--- NOTE | 2019-10-18 09:59 | PDOC2 ---
[facility] SUPPLIER MANAGER 10/18/19 0959: CONSULT Date of Consult Date of Consult DATE: 10/18/19 TIME: 09:53 Reason for Consult Reason for Consult: perforated diverticulitis Referring Physician Referring Physician: ER Identification/Chief Complaint Chief Complaint fevers Source Source: Chart review, Patient History of Present Illness Reason for Visit: Has been ongoing issues since admitted in August with diverticulitis. Treated with IV abx, improvement, discharge. Pain never has gone away, lack of appetite, weight loss of 15 lbs. He has had diverticulitis in past, however never this severe. Started abx orally again, however then developed fevers, sent to er. No colonoscopy in past. Eating seems to make pain worse, bloating. Constipation has been an issues ongoing, no diarrhea. Past Medical History Cardiovascular: HTN, Hyperlipidemia Past Surgical History Past Surgical History: No pertinent history Family History Family History: Cancer (colon in uncle, pancreatic in brother and father ) Social History 2 packs per day ALCOHOL: occassional Drugs: None Lives: with Family Current Problem List Problem List Problems Medical Problems: (1) Abdominal pain Status: Acute (2) Diverticulitis of colon with perforation Status: Acute (3) Sepsis Status: Acute (4) Sigmoid diverticulitis Status: Acute Current Medications Current Medications Current Medications Sodium Chloride 1,000 ml @ 1,000 mls/hr 1X ONCE IV Last administered on 10/17/19at 20:54; Start 10/17/19 at 21:00; Stop 10/17/19 at 21:59; Status DC Sodium Chloride 1,000 ml @ 1,000 mls/hr 1X ONCE IV Last administered on 10/17/19at 20:40; Start 10/17/19 at 21:00; Stop 10/17/19 at 21:59; Status DC Metronidazole 100 ml @ 100 mls/hr 1X ONCE IV Last administered on 10/17/19at 20:55; Start 10/17/19 at 21:00; Stop 10/17/19 at 21:59; Status DC Ciprofloxacin/ Dextrose 200 ml @ 200 mls/hr 1X ONCE IV Last administered on 10/17/19at 22:06; Start 10/17/19 at 21:00; Stop 10/17/19 at 21:59; Status DC Iohexol (Omnipaque 300 Mg/ml) 75 ml 1X ONCE IV Last administered on 10/17/19at 21:17; Start 10/17/19 at 21:30; Stop 10/17/19 at 21:31; Status DC Info (CONTRAST GIVEN -- Rx MONITORING) 1 each PRN DAILY PRN MC SEE COMMENTS; Start 10/17/19 at 21:15; Stop 10/19/19 at 21:14 Hydromorphone HCl (Dilaudid) 1 mg 1X ONCE IVP Last administered on 10/17/19at 22:05; Start 10/17/19 at 22:30; Stop 10/17/19 at 22:31; Status DC Piperacillin Sod/ Tazobactam Sod 4.5 gm/Sodium Chloride 100 ml @ 200 mls/hr 1X ONCE IV ; Start 10/17/19 at 22:30; Stop 10/17/19 at 22:06; Status DC Ampicillin Sodium 2 gm/Sodium Chloride 100 ml @ 200 mls/hr 1X ONCE IV Last administered on 10/17/19at 23:25; Start 10/17/19 at 22:30; Stop 10/17/19 at 22:59; Status DC Ondansetron HCl (Zofran) 4 mg PRN Q8HRS PRN IV NAUSEA/VOMITING 1ST CHOICE; Start 10/17/19 at 23:30; Stop 10/18/19 at 23:29 Morphine Sulfate (Morphine Sulfate) 2 mg PRN Q2HR PRN IV SEVERE PAIN 7-10; Start 10/17/19 at 23:30; Stop 10/18/19 at 23:29 Sodium Chloride 1,000 ml @ 100 mls/hr Q10H IV Last administered on 10/18/19at 00:07; Start 10/17/19 at 23:30; Stop 10/18/19 at 23:29 Acetaminophen (Tylenol) 650 mg PRN QID PRN PO FEVER > 100.3'F Last administered on 10/18/19at 04:08; Start 10/18/19 at 04:00 Piperacillin Sod/ Tazobactam Sod 3.375 gm/Sodium Chloride 50 ml @ 100 mls/hr Q6HRS IV ; Start 10/18/19 at 12:00 Potassium Chloride/Dextrose/ Sod Cl 1,000 ml @ 125 mls/hr Q8H IV ; Start 10/18/19 at 08:30 Ketorolac Tromethamine (Toradol 30mg Vial) 30 mg PRN Q6HRS PRN IVP PAIN; Start 10/18/19 at 08:30; Stop 10/23/19 at 08:29 Morphine Sulfate (Morphine Sulfate) 3 mg PRN Q2HR PRN IV SEVERE PAIN; Start 10/18/19 at 08:30 Active Scripts Active Reported Atorvastatin Calcium 10 Mg Tablet 1 Tab PO HS Meloxicam 15 Mg Tablet 1 Tab PO DAILY 30 Days Topamax (Topiramate) 50 Mg Tablet 1 Tab PO DAILY 30 Days Lisinopril-Hctz 20-12.5 Mg Tab (Lisinopril/Hydrochlorothiazide) 1 Each Tablet 1 Tab PO DAILY Atorvastatin Calcium 10 Mg Tablet 1 Tab PO DAILY Allergies Allergies: Coded Allergies: No Known Drug Allergies (Unverified , 08/28/19) ROS General: YES: Chills, Fatigue, Appetite (loss) PSYCHOLOGICAL ROS: No: Anxiety, Depression Eyes: No Blurry vision, No Double vision HEENT: No: Heacaches, Sore Throat Hematological and Lymphatic: No: Bleeding Problems, Blood Clots Respiratory: No: Cough, Shortness of breath Cardiovascular: No Chest Pain, No Palpitations Gastrointestinal: Yes Other (see HPI) Genitourinary: YES Dysuria; No Hematuria Musculoskeletal: No Joint Pain, No Muscle Pain Neurological: No Impaired Coord/balance, No Numbness/Tingling Skin: No Pruritus, No Rash Physical Exam General: Alert, Oriented X3, Cooperative HEENT: Atraumatic, PERRLA Lungs: Clear to auscultation, Normal air movement Heart: Regular rate, Normal S1, Normal S2 Abdomen: Soft, Other (mild ttp lower abdomen, ND, no guarding, no peritoneal signs ) Extremities: No clubbing, No cyanosis Skin: No rashes, No breakdown Neuro: Normal gait, Normal speech Psych/Mental Status: Mental status NL, Mood NL MUSCULOSKELETAL: No deformity, No swelling Vitals VITALS Vital Signs Date Time Temp Pulse Resp B/P (MAP) Pulse Ox O2 Delivery O2 Flow Rate FiO2 10/18/19 07:31 99.8 84 20 132/64 (86) 98 Room Air 99.8 Labs Labs Laboratory Tests Test 10/17/19 20:35 White Blood Count 15.9 x10^3/uL (4.0-11.0) Red Blood Count 4.65 x10^6/uL (4.30-5.70) Hemoglobin 15.1 g/dL (13.0-17.5) Hematocrit 42.4 % (39.0-53.0) Mean Corpuscular Volume 91 fL (79-100) Mean Corpuscular Hemoglobin 32 pg (25-35) Mean Corpuscular Hemoglobin Concent 36 g/dL (31-37) Red Cell Distribution Width 12.8 % (11.5-14.5) Platelet Count 557 x10^3/uL (140-400) Neutrophils (%) (Auto) 73 % (31-73) Lymphocytes (%) (Auto) 16 % (24-48) Monocytes (%) (Auto) 10 % (0-9) Eosinophils (%) (Auto) 1 % (0-3) Basophils (%) (Auto) 1 % (0-3) Neutrophils # (Auto) 11.5 x10^3/uL (1.8-7.7) Lymphocytes # (Auto) 2.5 x10^3/uL (1.0-4.8) Monocytes # (Auto) 1.5 x10^3/uL (0.0-1.1) Eosinophils # (Auto) 0.2 x10^3/uL (0.0-0.7) Basophils # (Auto) 0.1 x10^3/uL (0.0-0.2) Sodium Level 133 mmol/L (136-145) Potassium Level 3.8 mmol/L (3.5-5.1) Chloride Level 100 mmol/L (98-107) Carbon Dioxide Level 23 mmol/L (21-32) Anion Gap 10 (6-14) Blood Urea Nitrogen 9 mg/dL (8-26) Creatinine 0.8 mg/dL (0.7-1.3) Estimated GFR (Cockcroft-Gault) 101.1 Glucose Level 96 mg/dL (70-99) Lactic Acid Level 0.7 mmol/L (0.4-2.0) Calcium Level 9.0 mg/dL (8.5-10.1) Total Bilirubin 0.3 mg/dL (0.2-1.0) Direct Bilirubin 0.1 mg/dL (0.0-0.2) Aspartate Amino Transf (AST/SGOT) 13 U/L (15-37) Alanine Aminotransferase (ALT/SGPT) 18 U/L (16-63) Alkaline Phosphatase 69 U/L (46-116) Creatine Kinase 50 U/L (39-308) Troponin I Quantitative < 0.017 ng/mL (0.000-0.055) Total Protein 7.4 g/dL (6.4-8.2) Albumin 3.1 g/dL (3.4-5.0) Lipase 86 U/L (73-393) Laboratory Tests Test 10/17/19 20:35 White Blood Count 15.9 x10^3/uL (4.0-11.0) Red Blood Count 4.65 x10^6/uL (4.30-5.70) Hemoglobin 15.1 g/dL (13.0-17.5) Hematocrit 42.4 % (39.0-53.0) Mean Corpuscular Volume 91 fL (79-100) Mean Corpuscular Hemoglobin 32 pg (25-35) Mean Corpuscular Hemoglobin Concent 36 g/dL (31-37) Red Cell Distribution Width 12.8 % (11.5-14.5) Platelet Count 557 x10^3/uL (140-400) Neutrophils (%) (Auto) 73 % (31-73) Lymphocytes (%) (Auto) 16 % (24-48) Monocytes (%) (Auto) 10 % (0-9) Eosinophils (%) (Auto) 1 % (0-3) Basophils (%) (Auto) 1 % (0-3) Neutrophils # (Auto) 11.5 x10^3/uL (1.8-7.7) Lymphocytes # (Auto) 2.5 x10^3/uL (1.0-4.8) Monocytes # (Auto) 1.5 x10^3/uL (0.0-1.1) Eosinophils # (Auto) 0.2 x10^3/uL (0.0-0.7) Basophils # (Auto) 0.1 x10^3/uL (0.0-0.2) Sodium Level 133 mmol/L (136-145) Potassium Level 3.8 mmol/L (3.5-5.1) Chloride Level 100 mmol/L (98-107) Carbon Dioxide Level 23 mmol/L (21-32) Anion Gap 10 (6-14) Blood Urea Nitrogen 9 mg/dL (8-26) Creatinine 0.8 mg/dL (0.7-1.3) Estimated GFR (Cockcroft-Gault) 101.1 Glucose Level 96 mg/dL (70-99) Lactic Acid Level 0.7 mmol/L (0.4-2.0) Calcium Level 9.0 mg/dL (8.5-10.1) Total Bilirubin 0.3 mg/dL (0.2-1.0) Direct Bilirubin 0.1 mg/dL (0.0-0.2) Aspartate Amino Transf (AST/SGOT) 13 U/L (15-37) Alanine Aminotransferase (ALT/SGPT) 18 U/L (16-63) Alkaline Phosphatase 69 U/L (46-116) Creatine Kinase 50 U/L (39-308) Troponin I Quantitative < 0.017 ng/mL (0.000-0.055) Total Protein 7.4 g/dL (6.4-8.2) Albumin 3.1 g/dL (3.4-5.0) Lipase 86 U/L (73-393) Assessment/Plan Assessment/Plan diverticulitis CT reviewed--air/fluid collection between colon and bladder fevers, WBC 15 ongoing issues since August--attempt IV abx, if not improving may require surgery will review with JESS Sullivan MD 10/18/19 1304: CONSULT Assessment/Plan Assessment/Plan Pt seen and examined by myself; has been dealing with issues from diverticulitis since August. Admitted due to continued lower abdominal pain, fevers. Denies nausea or vomiting. PMH/PSH/ROS/SH as above; exam: alert, oriented, appears comfortable, lungs clear, heart RR and R, abdomen soft, nondistended, reports tenderness low mid abdomen, no guarding or peritoneal signs, ext neg for edema; CT/labs reviewed. A/P) Diverticulitis, suspect abscess adjacent to bladder; plan for IV abx, bowel rest, serial exams/labs; hope to improve acute situation with medical management; if improves may want to consider semi elective surgery due to recurrent problems. A[facility] HEART APRN Oct 18, 2019 09:59 JESS ROLON MD Oct 18, 2019 13:04
--- NOTE | 2019-10-18 10:06 | NUR ---
SW following. Discussed with RN, pt from home, room air, NPO. Surgical and ID consult. Surgery stating to try IV abx, if no improvement, pt may require surgery. SW will continue to follow.
--- NOTE | 2019-10-18 10:30 | CONS ---
DATE OF CONSULTATION: 10/18/2019 REFERRING PHYSICIAN: Dr. Melgar. REASON FOR CONSULTATION: Intraabdominal perforation antibiotic management. HISTORY OF PRESENT ILLNESS: A 54-year-old male with history of smoking, hyperlipidemia, recent sigmoid diverticulitis with E. coli bacteremia, who was treated with Zosyn followed by Dorothea and Sarah upon discharge, about 6 weeks ago. The patient was planned to undergo colonoscopy, but came in because of abdominal pain, which started 2 weeks ago, getting worse since he started going back to work. He also had chills. Denies any nausea, vomiting, headache, sore throat, shortness of breath, cough, nausea, vomiting, bloody stools or weight loss. The patient was started on Zosyn also got Dorothea and Sarah in the ER. ID consultation has been requested for antibiotic management. His temperature was 102 earlier this morning, white count was elevated at 15,000 with platelets of 557. Lactate of 0.7. Creatinine normal LFTs at 3.1. The patient underwent abdominal CT, which shows findings likely related to diverticulitis of the sigmoid colon with contained perforation measuring 3.5 x 3.4 cm, interposed between the sigmoid colon and bladder, nonobstructing 2 mm renal calculi. UA was negative. The patient is currently alert, oriented x 3. Feels comfortable, continues to have lower abdominal pain. He has been evaluated by General Surgery. PAST MEDICAL HISTORY: Hypertension, hyperlipidemia, migraine headaches, diverticulosis with history of diverticulitis, shoulder and hand surgeries. SOCIAL HISTORY: Positive for smoking. Occasional alcohol. No drug use. 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 ALLERGIES: No known drug allergies. REVIEW OF SYSTEMS: Negative except for above in HPI. CURRENT MEDICATIONS: Zosyn. Other medications reviewed in medication list. PHYSICAL EXAMINATION: VITAL SIGNS: Temperature 99.8 was 102.4, pulse 84, respiratory rate 20, blood pressure 132/64, oxygen saturation 98% on room air. GENERAL: Alert, oriented x 3 male lying in bed comfortably, in no acute distress, pleasant, cooperative. HEENT: Normocephalic, atraumatic, anicteric. No thrush. NECK: Supple, no JVD. LUNGS: Clear bilaterally. HEART: S1, S2 regular. ABDOMEN: Soft, mild tenderness in the left lower quadrant. No guarding, no rigidity. Bowel sounds present. EXTREMITIES: No edema, no cyanosis. DERMATOLOGIC: Warm, dry. No generalized rash. NEUROLOGIC: Alert and oriented x 3, grossly nonfocal. LABORATORY DATA: WBC 15.9, hemoglobin 15.1, hematocrit 42.4, and platelets 557. Sodium 133, potassium 3.8, chloride 100, bicarbonate 23, BUN 9, creatinine 0.8, glucose 96. Lactate 0.7. LFTs normal, troponin normal, Lipase 86. UA, trace ketones, otherwise negative. MICRO: None available at this time. IMAGING: CT abdomen and pelvis as above. CHEST X-RAY: No acute radiographic abnormality of the chest. IMPRESSION: 1. Recurrent sigmoid diverticulitis with perforation between the colon and the bladder per CT. 2. Leukocytosis. 3. Fever. 4. History of smoking. RECOMMENDATIONS: 1. Continue IV Zosyn. 2. Gen Surgery is evaluating the patient.IR consulted. 3. Follow up labs and cultures. 4. Continue supportive care. Thank you for allowing me to participate in this patient's care. KELSI BEARDEN MD DR: MARIZOL/felipe JOB#: [id number] / [id number] [place]
[2019-10-18] MEDS: POTASSIUM CL 20MEQ D5-0.45NACL 1,000 ML IV SCH ×2 (11:11→19:27)
[2019-10-18 11:19] VITALS: BP 144/71
--- NOTE | 2019-10-18 11:53 | PDOC ---
Provider Note Date of Service: DATE: 10/18/19 TIME: 11:48 Provider Note IR NOTE CT reviewed. Abscess adjacent to sigmoid colon is not amenable to percutaneous drainage. Justifications for Admission Other Justification DEVAN ARDON MD Oct 18, 2019 11:53
[2019-10-18] MEDS: PIPERACILLIN/TAZOBACTAM 3.375 GM in IV NORMAL SALINE 50ML 50 ML IV SCH ×3 (13:15→19:25)
[2019-10-18] MEDS: NICOTINE 21MG PATCH. TD SCH (13:16)
[2019-10-18 15:18] VITALS: BP 134/85
[2019-10-18 19:00] VITALS: BP 137/74
[2019-10-18 23:00] VITALS: BP 130/76
[2019-10-19] MEDS: PIPERACILLIN/TAZOBACTAM 3.375 GM in IV NORMAL SALINE 50ML 50 ML IV SCH ×3 (00:48→16:51)
[2019-10-19 03:00] VITALS: BP 135/74
[2019-10-19] MEDS: POTASSIUM CL 20MEQ D5-0.45NACL 1,000 ML IV SCH ×3 (06:24→16:50)
--- NOTE | 2019-10-19 06:32 | NUR ---
MED ADMINISTRATION NOTE: One time order to be entered for patient's 0600 Zosyn d/t prior nurse scanning 1800 Zosyn twice. Verified with NIYAH Sarkar.
[2019-10-19] MEDS ORDERED: PIPERACILLIN/TAZOBACTAM 3.375 GM in IV NORMAL SALINE 50ML 50 ML IV ONE (06:45)
[2019-10-19 07:00] VITALS: BP 118/70
--- NOTE | 2019-10-19 08:26 | PDOC ---
Provider Note Date of Service: DATE: 10/19/19 TIME: 08:18 Provider Note no temp x 24 hrs- pain some less- BC neg so far- surg consult noted- cont iv zosyn/ npo for now, add CL if surg ok Justifications for Admission Other Justification RANJIT CHUNG MD Oct 19, 2019 08:26
[2019-10-19] MEDS: NICOTINE 21MG PATCH. TD SCH (09:03)
--- NOTE | 2019-10-19 10:04 | PDOC ---
Infectious Disease Note Vital Signs: Vital Signs Vital Signs Date Time Temp Pulse Resp B/P (MAP) Pulse Ox O2 Delivery O2 Flow Rate FiO2 10/19/19 08:00 Room Air 10/19/19 07:00 98.5 86 17 118/70 (86) 94 98.5 Physical Exam: PHYSICAL EXAM GENERAL: Alert, oriented x 3 male lying in bed comfortably, in no acute distress, pleasant, cooperative. HEENT: Normocephalic, atraumatic, anicteric. No thrush. NECK: Supple, no JVD. LUNGS: Clear bilaterally. HEART: S1, S2 regular. ABDOMEN: Soft, mild tenderness in the left lower quadrant. No guarding, no rigidity. Bowel sounds present. EXTREMITIES: No edema, no cyanosis. DERMATOLOGIC: Warm, dry. No generalized rash. NEUROLOGIC: Alert and oriented x 3, grossly nonfocal. Medications: Inpatient Meds: Current Medications Medications (Trade) Dose Ordered Sig/Elana Start Time Stop Time Status Last Admin Dose Admin Acetaminophen (Tylenol) 650 mg PRN QID PRN 10/18/19 04:00 10/18/19 04:08 650 MG Ampicillin Sodium 2 gm/Sodium Chloride 100 ml @ 200 mls/hr 1X ONCE 10/17/19 22:30 10/17/19 22:59 DC 10/17/19 23:25 200 MLS/HR Ciprofloxacin/ Dextrose 200 ml @ 200 mls/hr 1X ONCE 10/17/19 21:00 10/17/19 21:59 DC 10/17/19 22:06 200 MLS/HR Hydromorphone HCl (Dilaudid) 1 mg 1X ONCE 10/17/19 22:30 10/17/19 22:31 DC 10/17/19 22:05 1 MG Info (CONTRAST GIVEN -- Rx MONITORING) 1 each PRN DAILY PRN 10/17/19 21:15 10/19/19 21:14 Iohexol (Omnipaque 300 Mg/ml) 75 ml 1X ONCE 10/17/19 21:30 10/17/19 21:31 DC 10/17/19 21:17 75 ML Ketorolac Tromethamine (Toradol 30mg Vial) 30 mg PRN Q6HRS PRN 10/18/19 08:30 10/23/19 08:29 10/18/19 23:18 30 MG Metronidazole 100 ml @ 100 mls/hr 1X ONCE 10/17/19 21:00 10/17/19 21:59 DC 10/17/19 20:55 100 MLS/HR Morphine Sulfate (Morphine Sulfate) 3 mg PRN Q2HR PRN 10/18/19 08:30 Nicotine (Nicoderm Cq 21mg) 1 patch DAILY 10/18/19 12:45 10/19/19 09:03 1 PATCH Ondansetron HCl (Zofran) 4 mg PRN Q8HRS PRN 10/17/19 23:30 10/18/19 23:29 DC Piperacillin Sod/ Tazobactam Sod 3.375 gm/Sodium Chloride 50 ml @ 100 mls/hr 1X ONCE 10/19/19 06:45 10/19/19 07:14 DC 10/19/19 06:39 100 MLS/HR Piperacillin Sod/ Tazobactam Sod 4.5 gm/Sodium Chloride 100 ml @ 200 mls/hr 1X ONCE 10/17/19 22:30 10/17/19 22:06 DC Potassium Chloride/Dextrose/ Sod Cl 1,000 ml @ 125 mls/hr Q8H 10/18/19 08:30 10/19/19 09:05 125 MLS/HR Sodium Chloride 1,000 ml @ 100 mls/hr Q10H 10/17/19 23:30 10/18/19 20:54 DC 10/18/19 00:07 100 MLS/HR Labs: Lab Laboratory Tests Test 10/18/19 10:40 Coronavirus (PCR) Not detected (Not Detected) SARS-CoV-2 Antigen (Rapid) Negative (NEGATIVE) Objective: Assessment: 1. Recurrent sigmoid diverticulitis with perforation between the colon and the bladder per CT. 2. Leukocytosis. 3. Fever. 4. History of smoking. Plan: Plan of Care RECOMMENDATIONS: 1. Continue IV Zosyn. 2. Gen Surgery is evaluating the patient.IR input noted 3. Follow up labs and cultures. 4. Continue supportive care. 5. Discussed with zoe at bedside KELSI BEARDEN MD Oct 19, 2019 10:04
--- NOTE | 2019-10-19 10:37 | PDOC ---
[facility] [employer] MAINTENANCE CHIEF 10/19/19 1037: SURGICAL PROGRESS NOTE DATE: 10/19/19 TIME: 10:36 Subjective pain minimal they are concerned that once goes home will worsen again and end up here Vital Signs Vital Signs Date Time Temp Pulse Resp B/P (MAP) Pulse Ox O2 Delivery O2 Flow Rate FiO2 10/19/19 08:00 Room Air 10/19/19 07:00 98.5 86 17 118/70 (86) 94 98.5 I&O Intake and Output 10/19/19 07:00 Intake Total 1025 ml Balance 1025 ml Intake Oral 0 ml IV Total 1025 ml # Voids 7 General: Alert, Oriented X3, Cooperative Abdomen: Soft, No tenderness Labs Laboratory Tests Test 10/17/19 20:35 10/18/19 10:40 White Blood Count 15.9 x10^3/uL (4.0-11.0) Red Blood Count 4.65 x10^6/uL (4.30-5.70) Hemoglobin 15.1 g/dL (13.0-17.5) Hematocrit 42.4 % (39.0-53.0) Mean Corpuscular Volume 91 fL (79-100) Mean Corpuscular Hemoglobin 32 pg (25-35) Mean Corpuscular Hemoglobin Concent 36 g/dL (31-37) Red Cell Distribution Width 12.8 % (11.5-14.5) Platelet Count 557 x10^3/uL (140-400) Neutrophils (%) (Auto) 73 % (31-73) Lymphocytes (%) (Auto) 16 % (24-48) Monocytes (%) (Auto) 10 % (0-9) Eosinophils (%) (Auto) 1 % (0-3) Basophils (%) (Auto) 1 % (0-3) Neutrophils # (Auto) 11.5 x10^3/uL (1.8-7.7) Lymphocytes # (Auto) 2.5 x10^3/uL (1.0-4.8) Monocytes # (Auto) 1.5 x10^3/uL (0.0-1.1) Eosinophils # (Auto) 0.2 x10^3/uL (0.0-0.7) Basophils # (Auto) 0.1 x10^3/uL (0.0-0.2) Sodium Level 133 mmol/L (136-145) Potassium Level 3.8 mmol/L (3.5-5.1) Chloride Level 100 mmol/L (98-107) Carbon Dioxide Level 23 mmol/L (21-32) Anion Gap 10 (6-14) Blood Urea Nitrogen 9 mg/dL (8-26) Creatinine 0.8 mg/dL (0.7-1.3) Estimated GFR (Cockcroft-Gault) 101.1 Glucose Level 96 mg/dL (70-99) Lactic Acid Level 0.7 mmol/L (0.4-2.0) Calcium Level 9.0 mg/dL (8.5-10.1) Total Bilirubin 0.3 mg/dL (0.2-1.0) Direct Bilirubin 0.1 mg/dL (0.0-0.2) Aspartate Amino Transf (AST/SGOT) 13 U/L (15-37) Alanine Aminotransferase (ALT/SGPT) 18 U/L (16-63) Alkaline Phosphatase 69 U/L (46-116) Creatine Kinase 50 U/L (39-308) Troponin I Quantitative < 0.017 ng/mL (0.000-0.055) Total Protein 7.4 g/dL (6.4-8.2) Albumin 3.1 g/dL (3.4-5.0) Lipase 86 U/L (73-393) Coronavirus (PCR) Not detected (Not Detected) SARS-CoV-2 Antigen (Rapid) Negative (NEGATIVE) Laboratory Tests Test 10/18/19 10:40 Coronavirus (PCR) Not detected (Not Detected) SARS-CoV-2 Antigen (Rapid) Negative (NEGATIVE) Problem List Problems Medical Problems: (1) Abdominal pain Status: Acute (2) Diverticulitis of colon with perforation Status: Acute (3) Sepsis Status: Acute (4) Sigmoid diverticulitis Status: Acute Assessment/Plan afebrile now cbc pending will review with Dr Marcus Justicifation of Admission Dx: Justifications for Admission: Justification of Admission Dx: Yes Sepsis: Infection JESS MARCUS MD 10/19/19 1447: SURGICAL PROGRESS NOTE Assessment/Plan Good improvement; continue IV abx for now [facility] [employer] CHIEF Oct 19, 2019 10:37 JESS MARCUS MD Oct 19, 2019 14:47
--- NOTE | 2019-10-19 10:39 | NUR ---
SW following. Discussed with RN, room air NPO. Surgical and ID consult. SW will continue to follow.
[2019-10-19 10:52] VITALS: BP 122/74
[2019-10-19] MEDS: MORPHINE SULFATE 2 MG/ML VIAL. IV PRN ×2 (11:16→16:50)
[2019-10-19 11:36] LABS: BASO % 0 % (0-3); EOS # 0.1 x10^3/uL (0.0-0.7); EOS % 1 % (0-3); HEMATOCRIT 39.9 % (39.0-53.0); HEMOGLOBIN 13.5 g/dL (13.0-17.5); LYMPH # 1.5 x10^3/uL (1.0-4.8); LYMPH % 16 % (24-48); MEAN CORPUSCULAR HEMOGLOBIN 31 pg (25-35); MEAN CORPUSCULAR HGB CONC 34 g/dL (31-37); MEAN CORPUSCULAR VOLUME 92 fL (79-100); MONO % 11 % (0-9); NEUT # 6.7 x10^3/uL (1.8-7.7); NEUT % 72 % (31-73); PLATELET COUNT 431 x10^3/uL (140-400); RED BLOOD COUNT 4.32 x10^6/uL (4.30-5.70); RED CELL DISTRIBUTION WIDTH 13.2 % (11.5-14.5); WHITE BLOOD COUNT 9.3 x10^3/uL (4.0-11.0)
[2019-10-19 12:02] LABS: CALCIUM 8.4 mg/dL (8.5-10.1); CREATININE 0.7 mg/dL (0.7-1.3); POTASSIUM 4.2 mmol/L (3.5-5.1)
[2019-10-19 15:00] VITALS: BP 134/69
[2019-10-19 19:00] VITALS: BP 141/82
[2019-10-19 23:00] VITALS: BP 122/81
[2019-10-20] MEDS: PIPERACILLIN/TAZOBACTAM 3.375 GM in IV NORMAL SALINE 50ML 50 ML IV SCH ×4 (00:03→17:28)
[2019-10-20] MEDS: MORPHINE SULFATE 2 MG/ML VIAL. IV PRN ×3 (00:07→17:33)
[2019-10-20 03:00] VITALS: BP 131/82
[2019-10-20 07:00] VITALS: BP 143/83
[2019-10-20] MEDS: POTASSIUM CL 20MEQ D5-0.45NACL 1,000 ML IV SCH (07:30)
--- NOTE | 2019-10-20 08:36 | PDOC ---
Provider Note Date of Service: DATE: 10/20/19 TIME: 08:35 Provider Note no temp, less pain, still a little tender, BUT he noted pneumoturia this am for 1st time- cbc better- will repeat ct re poss fistula- they wish to explore transfer to for 2nd opinion, ss notified to call re same Justifications for Admission Other Justification RANJIT CHUNG MD Oct 20, 2019 08:36
--- NOTE | 2019-10-20 09:06 | PDOC ---
SURGICAL PROGRESS NOTE DATE: 10/20/19 TIME: 09:05 Subjective reports pneumoturia this Am discussion of tx to [facility] for 2nd surgical opinion Vital Signs Vital Signs Date Time Temp Pulse Resp B/P (MAP) Pulse Ox O2 Delivery O2 Flow Rate FiO2 10/20/19 07:00 98.2 77 18 143/83 (103) 99 98.2 10/20/19 00:45 Room Air I&O Intake and Output 10/20/19 07:00 Intake Total 600 ml Balance 600 ml Intake Oral 600 ml # Voids 3 General: Alert, Oriented X3, Cooperative Abdomen: Soft, No tenderness Labs Laboratory Tests Test 10/18/19 10:40 10/19/19 11:25 Coronavirus (PCR) Not detected (Not Detected) SARS-CoV-2 Antigen (Rapid) Negative (NEGATIVE) White Blood Count 9.3 x10^3/uL (4.0-11.0) Red Blood Count 4.32 x10^6/uL (4.30-5.70) Hemoglobin 13.5 g/dL (13.0-17.5) Hematocrit 39.9 % (39.0-53.0) Mean Corpuscular Volume 92 fL (79-100) Mean Corpuscular Hemoglobin 31 pg (25-35) Mean Corpuscular Hemoglobin Concent 34 g/dL (31-37) Red Cell Distribution Width 13.2 % (11.5-14.5) Platelet Count 431 x10^3/uL (140-400) Neutrophils (%) (Auto) 72 % (31-73) Lymphocytes (%) (Auto) 16 % (24-48) Monocytes (%) (Auto) 11 % (0-9) Eosinophils (%) (Auto) 1 % (0-3) Basophils (%) (Auto) 0 % (0-3) Neutrophils # (Auto) 6.7 x10^3/uL (1.8-7.7) Lymphocytes # (Auto) 1.5 x10^3/uL (1.0-4.8) Monocytes # (Auto) 1.0 x10^3/uL (0.0-1.1) Eosinophils # (Auto) 0.1 x10^3/uL (0.0-0.7) Basophils # (Auto) 0.0 x10^3/uL (0.0-0.2) Sodium Level 137 mmol/L (136-145) Potassium Level 4.2 mmol/L (3.5-5.1) Chloride Level 104 mmol/L (98-107) Carbon Dioxide Level 25 mmol/L (21-32) Anion Gap 8 (6-14) Blood Urea Nitrogen 7 mg/dL (8-26) Creatinine 0.7 mg/dL (0.7-1.3) Estimated GFR (Cockcroft-Gault) 118.0 Glucose Level 114 mg/dL (70-99) Calcium Level 8.4 mg/dL (8.5-10.1) Laboratory Tests Test 10/19/19 11:25 White Blood Count 9.3 x10^3/uL (4.0-11.0) Red Blood Count 4.32 x10^6/uL (4.30-5.70) Hemoglobin 13.5 g/dL (13.0-17.5) Hematocrit 39.9 % (39.0-53.0) Mean Corpuscular Volume 92 fL (79-100) Mean Corpuscular Hemoglobin 31 pg (25-35) Mean Corpuscular Hemoglobin Concent 34 g/dL (31-37) Red Cell Distribution Width 13.2 % (11.5-14.5) Platelet Count 431 x10^3/uL (140-400) Neutrophils (%) (Auto) 72 % (31-73) Lymphocytes (%) (Auto) 16 % (24-48) Monocytes (%) (Auto) 11 % (0-9) Eosinophils (%) (Auto) 1 % (0-3) Basophils (%) (Auto) 0 % (0-3) Neutrophils # (Auto) 6.7 x10^3/uL (1.8-7.7) Lymphocytes # (Auto) 1.5 x10^3/uL (1.0-4.8) Monocytes # (Auto) 1.0 x10^3/uL (0.0-1.1) Eosinophils # (Auto) 0.1 x10^3/uL (0.0-0.7) Basophils # (Auto) 0.0 x10^3/uL (0.0-0.2) Sodium Level 137 mmol/L (136-145) Potassium Level 4.2 mmol/L (3.5-5.1) Chloride Level 104 mmol/L (98-107) Carbon Dioxide Level 25 mmol/L (21-32) Anion Gap 8 (6-14) Blood Urea Nitrogen 7 mg/dL (8-26) Creatinine 0.7 mg/dL (0.7-1.3) Estimated GFR (Cockcroft-Gault) 118.0 Glucose Level 114 mg/dL (70-99) Calcium Level 8.4 mg/dL (8.5-10.1) Problem List Problems Medical Problems: (1) Abdominal pain Status: Acute (2) Diverticulitis of colon with perforation Status: Acute (3) Sepsis Status: Acute (4) Sigmoid diverticulitis Status: Acute Assessment/Plan CT pending possible ku tx Justicifation of Admission Dx: Justifications for Admission: Justification of Admission Dx: Yes Sepsis: Infection ADELA HEART APRN Oct 20, 2019 09:06
[2019-10-20] MEDS: NICOTINE 21MG PATCH. TD SCH (09:54)
--- NOTE | 2019-10-20 09:55 | NUR ---
PATRICK following. Discussed with RN. [facility] surgical wanting to treat with IV abx, and look at doing a colon resection in a few weeks as an outpatient. Pt wanting second opinion at - requesting transfer to . PATRICK contacted transfer line, they are at capacity and cannot accept inpatient transfer today. MECCA advised SW can call back around 1500 to see if they have had any discharges. RN and Dr. Melgar notified. PATIRCK will continue to follow. Addendum: 10/20/19 at 1107 by SHIRLEY NGUYEN RN contacted PATRICK to advise the pt is stating someone in administration at arranged everything. PATRICK contacted transfer line requesting this be double checked. MECCA contacted PATRICK back to advise pt is not on a list anywhere and has not been approved by anyone and for PATRICK to call back at 1500 to see if any beds have become available. PATRICK spoke with pt via the phone to advise of what MECCA said, pt could not provide the name of who approved the transfer. Pt stated PATRICK needs to call every hour, PATRICK told pt that will not happen as this SWer has other patients here to work on, and PATRICK will contact at 1500 as per recommendation (and PATRICK experience with hospital transfers). PT repeatedly stated PATRICK needs to call every hour, then stated PATRICK needs to call at 1300. PATRICK advised a call will be made at 1500. Pt not happy with this SWer and hung up. RN notified. Addendum: 10/20/19 at 1228 by SHIRLEY NGUYEN MECCA contacted PATRICK, asked PATRICK to send clinicals on patient so they can determine if pt has medical necessity to transfer if a bed does become available. PATRICK faxed requested clinicals. Addendum: 10/20/19 at 1615 by SHIRLEY NGUYEN Pt accepted at pending bed availability. RN notified.
[2019-10-20] MEDS ORDERED: CONTRAST GIVEN. MC PRN (10:30)
[2019-10-20] MEDS ORDERED: IOHEXOL 300 MG/ML 100ML VIAL. IV ONE (10:30)
[2019-10-20] MEDS ORDERED: IOHEXOL 240 MG/ML 50ML VIAL. PO ONE (10:30)
--- NOTE | 2019-10-20 10:45 | PDOC ---
Infectious Disease Note Subjective: Subjective Patient has less abdominal pain Has noted pneumaturia this a.m. Patient wished to explore transfer to for second opinion Vital Signs: Vital Signs Vital Signs Date Time Temp Pulse Resp B/P (MAP) Pulse Ox O2 Delivery O2 Flow Rate FiO2 10/20/19 07:00 98.2 77 18 143/83 (103) 99 98.2 10/20/19 00:45 Room Air Physical Exam: PHYSICAL EXAM GENERAL: Alert, oriented x 3 male lying in bed comfortably, in no acute distress, pleasant, cooperative. HEENT: Normocephalic, atraumatic, anicteric. No thrush. NECK: Supple, no JVD. LUNGS: Clear bilaterally. HEART: S1, S2 regular. ABDOMEN: Soft, mild tenderness in the left lower quadrant. No guarding, no rigidity. Bowel sounds present. EXTREMITIES: No edema, no cyanosis. DERMATOLOGIC: Warm, dry. No generalized rash. NEUROLOGIC: Alert and oriented x 3, grossly nonfocal. Medications: Inpatient Meds: Current Medications Medications (Trade) Dose Ordered Sig/Elana Start Time Stop Time Status Last Admin Dose Admin Acetaminophen (Tylenol) 650 mg PRN QID PRN 10/18/19 04:00 10/18/19 04:08 650 MG Ampicillin Sodium 2 gm/Sodium Chloride 100 ml @ 200 mls/hr 1X ONCE 10/17/19 22:30 10/17/19 22:59 DC 10/17/19 23:25 200 MLS/HR Ciprofloxacin/ Dextrose 200 ml @ 200 mls/hr 1X ONCE 10/17/19 21:00 10/17/19 21:59 DC 10/17/19 22:06 200 MLS/HR Hydromorphone HCl (Dilaudid) 1 mg 1X ONCE 10/17/19 22:30 10/17/19 22:31 DC 10/17/19 22:05 1 MG Info (CONTRAST GIVEN -- Rx MONITORING) 1 each PRN DAILY PRN 10/20/19 10:30 10/22/19 10:29 Iohexol (Omnipaque 240 Mg/ml) 30 ml 1X ONCE 10/20/19 10:30 10/20/19 10:31 DC Iohexol (Omnipaque 300 Mg/ml) 75 ml 1X ONCE 10/20/19 10:30 10/20/19 10:31 DC Ketorolac Tromethamine (Toradol 30mg Vial) 30 mg PRN Q6HRS PRN 10/18/19 08:30 10/23/19 08:29 10/18/19 23:18 30 MG Metronidazole 100 ml @ 100 mls/hr 1X ONCE 10/17/19 21:00 10/17/19 21:59 DC 10/17/19 20:55 100 MLS/HR Morphine Sulfate (Morphine Sulfate) 3 mg PRN Q2HR PRN 10/18/19 08:30 10/20/19 00:07 2 MG Nicotine (Nicoderm Cq 21mg) 1 patch DAILY 10/18/19 12:45 10/20/19 09:54 1 PATCH Ondansetron HCl (Zofran) 4 mg PRN Q8HRS PRN 10/17/19 23:30 10/18/19 23:29 DC Piperacillin Sod/ Tazobactam Sod 3.375 gm/Sodium Chloride 50 ml @ 100 mls/hr 1X ONCE 10/19/19 06:45 10/19/19 07:14 DC 10/19/19 06:39 100 MLS/HR Piperacillin Sod/ Tazobactam Sod 4.5 gm/Sodium Chloride 100 ml @ 200 mls/hr 1X ONCE 10/17/19 22:30 10/17/19 22:06 DC Potassium Chloride/Dextrose/ Sod Cl 1,000 ml @ 75 mls/hr [id number] 10/18/19 08:30 10/20/19 07:30 75 MLS/HR Sodium Chloride 1,000 ml @ 100 mls/hr Q10H 10/17/19 23:30 10/18/19 20:54 DC 10/18/19 00:07 100 MLS/HR Labs: Lab Laboratory Tests Test 10/19/19 11:25 White Blood Count 9.3 x10^3/uL (4.0-11.0) Red Blood Count 4.32 x10^6/uL (4.30-5.70) Hemoglobin 13.5 g/dL (13.0-17.5) Hematocrit 39.9 % (39.0-53.0) Mean Corpuscular Volume 92 fL (79-100) Mean Corpuscular Hemoglobin 31 pg (25-35) Mean Corpuscular Hemoglobin Concent 34 g/dL (31-37) Red Cell Distribution Width 13.2 % (11.5-14.5) Platelet Count 431 x10^3/uL (140-400) Neutrophils (%) (Auto) 72 % (31-73) Lymphocytes (%) (Auto) 16 % (24-48) Monocytes (%) (Auto) 11 % (0-9) Eosinophils (%) (Auto) 1 % (0-3) Basophils (%) (Auto) 0 % (0-3) Neutrophils # (Auto) 6.7 x10^3/uL (1.8-7.7) Lymphocytes # (Auto) 1.5 x10^3/uL (1.0-4.8) Monocytes # (Auto) 1.0 x10^3/uL (0.0-1.1) Eosinophils # (Auto) 0.1 x10^3/uL (0.0-0.7) Basophils # (Auto) 0.0 x10^3/uL (0.0-0.2) Sodium Level 137 mmol/L (136-145) Potassium Level 4.2 mmol/L (3.5-5.1) Chloride Level 104 mmol/L (98-107) Carbon Dioxide Level 25 mmol/L (21-32) Anion Gap 8 (6-14) Blood Urea Nitrogen 7 mg/dL (8-26) Creatinine 0.7 mg/dL (0.7-1.3) Estimated GFR (Cockcroft-Gault) 118.0 Glucose Level 114 mg/dL (70-99) Calcium Level 8.4 mg/dL (8.5-10.1) Objective: Assessment: 1. Recurrent sigmoid diverticulitis with perforation,area is between the colon and the bladder per CT. CT abdomen and pelvis Findings likely related to diverticulitis at the sigmoid colon with a contained perforation measuring 3.5 x 3.4 cm interposed between the sigmoid colon and bladder. Pneumaturia, concern for fistula 2. Nonobstructing 2 mm left renal calculus. 2. Leukocytosis. Improved 3. Fever.pattern improved 4. History of smoking. Plan: Plan of Care Continue IV Zosyn. Gen Surgery is evaluating the patient. IR input noted,nto amenable for IR drainage Follow up labs and cultures. Continue supportive care. Patient wishes to seek second opinion at [facility] Discussed with zoe at bedside KELSI BEARDEN MD Oct 20, 2019 10:45
[2019-10-20 11:00] VITALS: BP 148/81
[2019-10-20 15:00] VITALS: BP 130/84
[2019-10-20] MEDS ORDERED: IOHEXOL 240 MG/ML 50ML VIAL. ONE (18:48)
[2019-10-20] MEDS ORDERED: IOHEXOL 300 MG/ML 100ML VIAL. ONE (18:48)
[2019-10-20 19:00] VITALS: BP 152/83
--- NOTE | 2019-10-20 19:00 | NUR ---
MECCA called and stated patient was accepted at and to be admitted to room [facility]. Report to be called [phone]. Transport to be set up by this RN by EMS. Will pass on to night RN.
--- NOTE | 2019-10-20 20:56 | NUR ---
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 ED RN started IV on pt. Left @ 2049.
--- NOTE | 2019-10-21 08:03 | PDOC ---
Provider Note Date of Service: DATE: 10/21/19 TIME: 08:02 Provider Note [id number] Justifications for Admission Other Justification RANJIT CHUNG MD Oct 21, 2019 08:03
--- NOTE | 2019-10-21 09:01 | DS ---
DATE OF DISCHARGE: 10/20/2019 HOSPITAL SUMMARY: A 54-year-old white male came in with ongoing abdominal pain despite the use of oral antibiotics for diverticulitis with increasing pain. He was found by CT to have an evidence of 3.5-cm perforation in the distal sigmoid colon area, but in the left side of the bladder. White count was 15,900 on admission and it came down to 9300 two days later. Chemistry profile unremarkable. COVID testing was negative. Repeat CT after he developed pneumaturia is pending at this time. He received IV Zosyn while in the hospital and was made n.p.o. and IV fluids and clinically improved with no fever and reducing pain. He complained of air in his urine on the day of discharge and both he and his fiance requested a transfer to [facility] for a second surgical opinion, which was ultimately accomplished. The results of the second CT raising the question of a colovesical fistula, but are pending at this time of transfer. He is medically stable at that time. FINAL DIAGNOSES: 1. Acute sigmoid diverticulitis with focal perforation. 2. Possible colovesical fistula secondary to perforated diverticulitis. OPERATIONS, PROCEDURES, COMPLICATIONS: None. CONSULTATIONS: Dr. Marcus. DISPOSITION: Transfer to [facility] for further care and evaluation. RANJIT CHUNG MD DR: JACKSON/nts JOB#: [id number] / [id number]
--- NOTE | 2019-10-21 09:20 | RAD ---
EXAM: CT Abdomen and Pelvis with IV contrast INDICATION: Reason: Abdominal pain. Poss colovesical fistula / Spl. Instructions: omni 300 75ml omni 240 30ml RN TO CALL AFTERPT DRINKS CONTRAST / History: TECHNIQUE: Multi-detector row CT images were acquired from the lung bases through the abdomen and pelvis with the use of IV contrast. Sagittal and coronal images were acquired from the transaxial data. All CT scans performed at this facility utilize dose optimization techniques as appropriate to the exam, including the following: Automated exposure control and adjustment of the mA and/or KV according to patient size (this includes techniques or standardized protocols for targeted exams where dose is indication/reason for exam). IV CONTRAST: Administered ORAL CONTRAST: Administered COMPARISON: 10/17/[address] with IV contrast only. FINDINGS: LOWER CHEST: Unremarkable LIVER: Unremarkable BILIARY SYSTEM: Gallbladder is unremarkable. Bile ducts are not dilated. PANCREAS: Unremarkable SPLEEN: Unremarkable ADRENALS: Bilateral low density fullness of the adrenal gland suggesting hyperplasia or adenomas. KIDNEYS & URETERS: Unremarkable BLADDER: Diffusely thick-walled urinary bladder contains a moderate amount of intraluminal gas with no Ceron catheter present. Intraluminal gas is new from the prior study. The dorsal surface of the urinary bladder is thickest and contains intramural gas as well. On sagittal image 37 of series 5, a bladder mucosal invagination suspicious for the orifice of a colovesical fistulous tract is identified. REPRODUCTIVE ORGANS: Unremarkable GASTROINTESTINAL: Although contrast was administered, the patient was scanned before the oral contrast reached the large bowel. The stomach and small bowel are unremarkable. Large bowel is largely stool filled and otherwise unremarkable down to the proximal sigmoid colon. Sigmoid colon however is spasmed and shows mild diffuse wall thickening with multiple diverticula. There is a gas containing fluid collection between the sigmoid colon and the urinary bladder measuring 2.4 cm wide, 1.9 cm tall and 3.9 cm long. There is apparent fistulous communication between the sigmoid colon and this fluid collection although lack of enteric contrast in this area limits detail. In addition, the appendiceal tip is poorly visualized and appears to abut the superior aspect of this fluid collection (images 22 and 23 of series 4). MESENTERY/PERITONEUM/RETROPERITONEUM: Unremarkable VASCULAR: Unremarkable LYMPH NODES: No adenopathy OSSEOUS & SOFT TISSUES: Unremarkable IMPRESSION: 1. In the setting of rectosigmoid diverticulitis with contained perforation and abscess in the rectovesical pouch, the interval development of intraluminal gas in the urinary bladder is presumptive evidence of a colovesical fistula (gas serving the role of an intrinsic contrast agent) in the absence of an interval history of bladder catheterization. There is possible additional secondary involvement of the appendiceal tip. 2. Although the oral contrast administered does not satisfactorily opacify the bowel loops of interest, the images acquired are sufficient to establish with reasonable confidence the suspected diagnosis of a colovesical fistula. If further imaging of the pelvis (to follow the contrast through the large bowel) is desired, additional delayed noncontrast CT images of the pelvis could be pursued. Electronically signed by: Eran Ramon MD (10/21/2019 9:17 AM) [id number]
== END 2019-10-20 20:50 | disposition short-term general hospital (02) | DRG 872 ==
LOC: ER 20:19 → 6 SOUTH 23:00 → 5 NORTH 23:42
PROVIDERS: ADMIT Family Medicine; ATTEND Family Medicine
DX: A41.9 Sepsis, unspecified organism (principal); K57.20 Diverticulitis of large intestine with perforation and abscess without bleeding; N32.1 Vesicointestinal fistula; E78.00 Pure hypercholesterolemia, unspecified; E78.5 Hyperlipidemia, unspecified; F17.200 Nicotine dependence, unspecified, uncomplicated; I10 Essential (primary) hypertension; K59.00 Constipation, unspecified; N20.0 Calculus of kidney; F41.9 Anxiety disorder, unspecified; G43.909 Migraine, unspecified, not intractable, without status migrainosus; Z20.828 Contact with and (suspected) exposure to other viral communicable diseases; Z80.0 Family history of malignant neoplasm of digestive organs
CPT/HCPCS: 36415; 71045; 74177; 80048; 80076; 82550; 83605; 83690; 84484; 85025; 87040; 87426; 96365; 96367; 96375; 99285; J0290; J0744; J1170; J1885; J2270; J2543; J3480; J3490; J7030; Q9966; Q9967; G0378; U0003-CS